=== PATIENT | male | born 1955 | race Caucasian/White ===

== ENCOUNTER → 2017-04-06 09:07 | Outpatient (CLI) | payer OTHER, SELFPAY ==
[2017-04-06 10:53] LABS: Anion Gap 8 (5-15); BUN 13 mg/dL (7-18); Calcium,Total 8.5 mg/dL (8.5-10.1); Chloride 106 mmol/L (98-107); Cholesterol 164 mg/dL (200); EST Glomerular Filtration Rate 81 mL/min (>60); Est Glom Filt Rate - Afr Amer 98 mL/min (>60); Glucose 98 mg/dL (74-106); High Density Lipoprotein 37 mg/dL; Potassium 4.1 mmol/L (3.5-5.1); Sodium Level 142 mmol/L (136-145); Triglycerides 188 mg/dL; Very Low Density Lipoprotein 38 mg/dL (5-40)
== END ==
PROVIDERS: Family Provider Family Medicine; PCP Family Medicine; Visit Provider Internal Medicine Cardiovascular Disease
DX: I71.00 Dissection of unspecified site of aorta (principal); I10 Essential (primary) hypertension
CPT/HCPCS: 36415; 80048; 80061

== ENCOUNTER → 2018-07-19 08:18 | Outpatient (CLI) | payer OTHER, SELFPAY ==
--- NOTE | 2018-07-19 08:23 | RAD_ITS ---
STUDY: X-RAY - LUMBAR SPINE REASON FOR EXAM: Male, 62 years old. Chronic low back pain and hip pain. TECHNIQUE: 5 view(s) of the lumbar spine were obtained including oblique views. COMPARISON: None FINDINGS: Normal lumbar lordosis. There is no substantial scoliosis. There is a normal alignment of the vertebrae. There is multilevel endplate spondylosis of the lumbar vertebrae. Normal disc space heights. Facet joint osteoarthritis. The soft tissue structures are unremarkable. RAD/L/S Spine Min 4 Views IMPRESSION: Degenerative changes of the spine, as detailed above. Electronically Signed: Sixto Ward, at 13:47 EDT , Service support ,
--- NOTE | 2018-07-19 08:26 | RAD_ITS ---
STUDY: X-RAY - PELVIS AND BILATERAL HIPS REASON FOR EXAM: Male, 62 years old. Bilateral hip pain. TECHNIQUE: AP view of the pelvis.? 2 views of the right hip, and 2 views of the left hip were obtained. COMPARISON: None. FINDINGS: There is a non-specific bowel gas pattern. Normal visualized soft tissue structures. Normal bilateral iliac wings, sacroiliac joints and visualized sacrum. Normal bilateral superior and inferior pubic rami. Normal pubic symphysis. Normal bilateral ischial tuberosities. Normal visualized right femoral head. There is osteoarthritic spur formation of the right acetabular rim. There is mild articular joint space narrowing of the right hip. Focal ossification overlying the right greater trochanter suggestive of a bursitis. Normal visualized left femoral head. There is osteoarthritic spur formation of the left acetabular rim. There is mild articular joint space narrowing of the left hip. RAD/Hips B/L min 2 views w/ Pelvis IMPRESSION: Degenerative changes involving both hip joints.. Findings suggestive of bursitis overlying the right greater trochanter. Electronically Signed: Sixto Ward, at 13:44 EDT , Service support ,
== END ==
PROVIDERS: Family Provider Family Medicine; PCP Family Medicine; Referring Provider Internal Medicine; Visit Provider Internal Medicine
DX: M25.552 Pain in left hip (principal); M25.551 Pain in right hip; M54.5 Low back pain
CPT/HCPCS: 72110; 73521

== ENCOUNTER → 2018-07-29 | Outpatient (CLI) | payer OTHER, SELFPAY ==
--- NOTE | 2018-07-29 16:49 | CT_ITS ---
STUDY: CT CHEST WITH CONTRAST REASON FOR EXAM: Male, 62 years old. Status post TAA repair, history of hypertension RADIATION DOSAGE (If Supplied By Facility): CTDIvol = ( 17.46 ) mGy, DLP = ( 828.40 ) mGycm TECHNIQUE: Transaxial 2.5 mm imaging was performed following intravenous administration of 100 IV Isovue 300. Multiplanar coronal and sagittal images were reformatted. Individualized dose optimization techniques were used for this CT. COMPARISON: CT chest 02/23/2015. 03/12/2014. FINDINGS: Stable mild interstitial disease with mild hyperinflation, peripheral opacification along the dependent parenchyma, stable calcified granuloma in the right upper lobe and right middle lobe. There is no demonstrated pleural abnormality. Sternal cerclage wires are present from a prior sternotomy. There is no pericardial fluid or cardiomegaly. There are calcifications of the coronary arteries. Normal mediastinum. Left stable calcified hilar lymph nodes. Normal enhanced pulmonary arteries. Mild stable wall thickening of the ascending thoracic aorta with occasional calcification, aortic diameter just distal to the left coronary artery origin measures 3.7 x 3.9 cm, descending thoracic aorta 2.7 x 3 cm. There is no aneurysm, dissection or leak. There are multi-level degenerative changes of the thoracic spine. Bilateral stable perirenal stranding, cholelithiasis, normal adrenal glands and normal diameter and enhancement of the upper abdominal aorta. CT/Chest WITH Contrast IMPRESSION: Postsurgical changes as above. No thoracic aortic aneurysm, dissection or leak. Chronic mild interstitial lung disease, remote granulomatous exposure, arteriosclerosis, coronary artery disease, degenerative changes, cholelithiasis are stable findings. Electronically Signed: Garima Mckenzie MD at 6:35 EDT , Service support ,
== END | disposition home or self-care (01) ==
LOC: CT 16:48
PROVIDERS: Family Provider Internal Medicine; PCP Internal Medicine; Referring Provider Internal Medicine; Visit Provider Internal Medicine
DX: I71.2 Thoracic aortic aneurysm, without rupture (principal)
CPT/HCPCS: 71260; Q9967; A4216

== ENCOUNTER → 2018-08-26 13:01 | Outpatient (CLI) | payer OTHER, SELFPAY ==
--- NOTE | 2018-08-26 13:12 | CT_ITS ---
STUDY: CTA CHEST REASON FOR EXAM: Male, 62 years old. Chest pain. Recent long distance travel. RADIATION DOSAGE (If Supplied By Facility): CTDIvol = ( 16.12 ) mGy, DLP = ( 498.76 ) mGycm TECHNIQUE: The examination was performed with the intravenous administration of 100mL IV Isovue 370. Post-processing of the angiographic images was performed, with multiplanar reformation and 3D reconstruction. Individualized dose optimization techniques were used for this CT. COMPARISON: Comparison is made with prior examination dated July 29, 2018 and February 23, 2015. FINDINGS: Normal enhancement of the main pulmonary artery and right and left pulmonary arteries. Normal enhancement of the bilateral peripheral pulmonary arteries. There is no demonstrated pulmonary embolism. Normal thoracic aorta and visualized great vessels. There is no demonstrated aortic dissection. There are endovascular stent(s) present. There are calcifications of the coronary arteries. Status post midline sternotomy. Stable appearance of the ascending thoracic aorta. Normal mediastinum. Normal hilar regions. Normal visualized trachea and bronchi. The lungs are well expanded. Normal pulmonary parenchyma. Normal pleura. Normal chest wall structures. There are degenerative changes of thoracic spine. Gallstone. CT/CTA Chest W/WO Contrast IMPRESSION: No evidence of pulmonary embolism. Stable examination. Electronically Signed: Sixto Ward, at 15:00 EDT , Service support ,
[2018-08-26 13:30] LABS: Creatinine, Serum 0.98 mg/dL (0.70-1.30); EST Glomerular Filtration Rate 82 mL/min (>60); Est Glom Filt Rate - Afr Amer 99 mL/min (>60)
== END ==
PROVIDERS: Family Provider Internal Medicine; PCP Internal Medicine; Referring Provider Internal Medicine; Visit Provider Internal Medicine
DX: R07.9 Chest pain, unspecified (principal)
CPT/HCPCS: 36415; 71275; 82565; Q9967

== ENCOUNTER → 2018-12-02 17:14 | Outpatient (CLI) | payer OTHER, SELFPAY ==
--- NOTE | 2018-12-02 17:16 | CT_ITS ---
We are attempting to reach an attending provider to discuss findings. An addendum with communication details will be sent when the communication is complete. STUDY: CT ABDOMEN AND PELVIS WITH CONTRAST REASON FOR EXAM: Male, 63 years old. Pain RADIATION DOSAGE (If Supplied By Facility): DLP = ( 1243.71 ) mGycm TECHNIQUE: Transaxial images were obtained from the dome of the diaphragm to the symphysis pubis without oral contrast. 100 ml ml of Gastrografin and amp; 100mL Isovue-300 contrast was administered. Sagittal and coronal images were reconstructed. Individualized dose optimization techniques were used for this CT. COMPARISON: None. FINDINGS: The visualized lung bases are clear. The visualized portions of the heart and pericardium are within normal limits. The gallbladder contains a gallstone. The liver is within normal limits. There are no suspicious hepatic lesions. The spleen is normal in size. The pancreas is within normal limits. The adrenal glands are within normal limits. There are no obstructing renal stones. There is no hydronephrosis. There are no focal renal lesions. Normal visualized stomach. There is mild bowel wall thickening at the distal descending colon with adjacent inflammatory changes. No regional diverticula are present. The aorta is normal in caliber. There is no abdominal or pelvic free air, free fluid, fluid collection or lymphadenopathy. There are no destructive osseous lesions. CT/Abdomen/Pelvis WITH Contrast IMPRESSION: Bowel wall thickening with adjacent inflammatory changes at the distal descending colon. Findings likely secondary to focal colitis, although underlying lesion is not excluded. Colonoscopy is recommended following acute episode to exclude underlying lesion. No regional diverticula. Electronically Signed: Yo Linares, at 19:51 EDT Tel , Service support ,
[2018-12-02 19:26] LABS: CREATININE FINGERSTICK 1.1 mg/dL (0.70-1.30)
== END ==
PROVIDERS: Family Provider Internal Medicine; PCP Internal Medicine; Referring Provider Internal Medicine; Visit Provider Internal Medicine
DX: R10.32 Left lower quadrant pain (principal)
CPT/HCPCS: 74177; Q9967

== ENCOUNTER → 2019-02-10 12:39 | Outpatient (CLI) | payer OTHER, SELFPAY ==
--- NOTE | 2019-02-10 12:41 | ECHOD_ITS ---
Reason For Study: AORTIC INSUFFICIENCY Procedure This was a 2D Doppler, Color Flow transthoracic echocardiogram. Exam performed in department. Left Ventricle Normal LV size. Left ventricular systolic function is normal. The estimated ejection fraction is 60 %. Stage 1 diastolic dysfunction. No regional wall motion abnormalities noted. Right Ventricle Normal RV size. Normal systolic function. Atria The left atrium is moderately enlarged. Normal right atrium. Aortic Valve The aortic valve is not well visualized. Pulmonic Valve Normal pulmonic valve. Great Vessels Normal aortic root. The pulmonary artery is normal size. Normal inferior vena cava. Pericardium/Pleural No pericardial effusion. MMode/2D Measurements & Calculations LVIDd: 5.0 cm IVSd: 0.93 cm Ao root diam: 3.0 cm LVIDs: 3.2 cm LVPWd: 0.90 cm RVDd: 4.0 cm FS: 34.8 % LAV(MOD-bp): 91.1 ml LA dimension(2D): 4.3 cm LA A4 area: 27.3 cm2 LAV(MOD-bp) Indexed: 39.1 ml/m2 LAV(MOD-sp2): 84.5 ml LAV(MOD-sp4): 92.8 ml RA A4 area: 21.8 cm2 Time Measurements MV dec time: 0.24 sec Doppler Measurements & Calculations MV E max krzysztof: 89.4 cm/sec Lat Peak E' Krzysztof: 9.5 cm/sec Med Peak E' Krzysztof: 8.8 cm/sec MV A max krzysztof: 109.3 cm/sec E/E' lat: 9.4 E/E' med: 10.1 MV E/A: 0.82 Ao V2 max: 158.0 cm/sec LV V1 max: 106.6 cm/sec PA V2 max: 112.3 cm/sec Ao max P.0 mmHg LV V1 max P.5 mmHg Interpretation Summary Normal LV size. Left ventricular systolic function is normal. The estimated ejection fraction is 60 %. Stage 1 diastolic dysfunction. Ordering Physician: Hansa Finney Referring Physician: Hansa Finney Performed By: Ирина Ball, ALRY, RVT
== END ==
PROVIDERS: Family Provider Internal Medicine; PCP Internal Medicine; Referring Provider Internal Medicine; Visit Provider Internal Medicine
DX: I35.1 Nonrheumatic aortic (valve) insufficiency (principal)
CPT/HCPCS: 93306

== ENCOUNTER 2019-07-08 18:14 | Emergency (ER) | payer OTHER, SELFPAY ==
[2019-07-08 18:15] VITALS: BP 135/83; PULSE 65; RESP 18; TEMP 36.8; O2SAT 97; BMI 37.0
--- NOTE | 2019-07-08 18:36 | CT_ITS ---
STUDY: CT ABDOMEN AND PELVIS WITH CONTRAST REASON FOR EXAM: Male, 63 years old. FALL FROM LADDER, 7-8 FT. NO LOC, BACK PAIN, RT ELBOW FX RADIATION DOSAGE (If Supplied By Facility): CTDIvol = ( 17.07 ) mGy, DLP = ( 1315.82 ) mGycm TECHNIQUE: Transaxial images were obtained from the dome of the diaphragm to the symphysis pubis without oral contrast. IV 100mL Isovue-300 was administered. Sagittal and coronal images were reconstructed. Individualized dose optimization techniques were used for this CT. COMPARISON: CT of abdomen and pelvis dated December 02, 2018 FINDINGS: No visualized acute fractures of the hips or pelvis. No visualized acute fractures of the spine. No visualized acute injury of the solid organs. There are chronic interstitial fibrotic changes of the lung bases. Median sternotomy wires are present. Normal liver. A small single stone is present. Normal spleen. Normal pancreas. Normal bilateral adrenal glands. There is mild atrophy and cortical lobularity of both kidneys. Normal visualized stomach. Normal small intestine. There are several colonic diverticula consistent with diverticulosis. There is non-visualization of the appendix. There is diffuse atherosclerotic calcification of the abdominal aorta, without a demonstrated aneurysm. Normal inferior vena cava. Normal retroperitoneum. Normal urinary bladder. Grossly unremarkable prostate. Normal abdominal wall. There are diffuse degenerative changes of the visualized lumbar spine. CT/Abdomen/Pelvis W IV Cont ONLY IMPRESSION: 1. Colonic diverticulosis 2. Gallstone 3. No visualized acute injury of the solid organs. 4. No visualized acute fractures of the hips or pelvis. No visualized acute fractures of the spine. Electronically Signed: Kota Abraham MD at 19:55 EDT , Service support ,
--- NOTE | 2019-07-08 18:37 | ED.VISSUMM ---
- ER Visit Summary Date of Service: 07/08/19 Chief Complaint: [Fall History of Present Illness: The patient is a 63 M [presents the emergency department after sustaining a fall off of a ladder today. Patient states that he was trimming some trees when he fell off a ladder he thinks approximately 8feet and fell directly backwards onto some pallets. He denies loss of consciousness. He did hit his head but denies headache or evidence of trauma to his head. Patient denies any neck pain. He denies any paresthesias in his arms or legs. Patient complains mostly of pain to his back as well as his right elbow. He denies any chest pain or difficulty breathing. He denies any abdominal pain. Patient states at one point he tried to walk afterwards and felt like his legs were to give out. Patient states the injury occurred approximately 4 PM today. Patient has history of high cholesterol and hypertension. Patient does not believe that he is on any blood thinners although we did have a record of him having Plavix but he does not feel like he is taking it currently.] Patient has history of hypertension and high cholesterol. Physical Examination: [HEENT-PERRLA, EOMI. Cranial nerves II through XII grossly intact. TMs clear. Mucous membranes moist. No adenopathy. No external evidence of trauma to his head. No C-spine tenderness on palpation. Normal active range of motion is painless. Cardiovascular-regular rate and rhythm without murmur or ectopy Lungs-clear to auscultation, chest wall stable without crepitus or subcu emphysema. Patient has some superficial abrasions and mild erythema to the right posterior upper back. No bony tenderness over the ribs noted. Abdomen-normoactive bowel sounds, soft, nontender, no rebound or rigidity, no peritoneal signs. Back exam-mild diffuse tenderness over lumbar spine. He is got tenderness over the left flank. Pelvis is stable. Extremities-intact ?4, normal range of motion, normal pulses. Right elbow-patient has diffuse soft tissue swelling with tenderness diffusely. He has pain with range of motion. He is neurovascular intact distally.] Test Results: [X-rays of the right elbow showed a fracture of the proximal ulna that is nondisplaced. Patient had a CT scan of the abdomen pelvis with IV contrast that showed no evidence of any traumatic injuries.] Emergency Department Course and Treatment: [Patient was placed in a long-arm posterior splint. Patient was medicated with [place]. Case was discussed with orthopedic surgeon on-call Dr. Leonard who will see patient in the office tomorrow. I initially recommended the patient that we obtain CT scans of his head and neck as well and a chest x-ray which he refused due to insurance issues and lack of insurance. Patient understands I cannot rule out a closed head injury such as intracranial hemorrhage or skull fracture. Patient also understands I cannot rule out chest pathology without a chest x-ray and neck fractures without x-rays or CT of the neck. Patient states that he has no discomfort in any of these areas and does not want to have any studies done.] Treatment Plan: [Patient was given a sling and will follow up with orthopedics tomorrow morning] Disposition: [Discharged home in stable condition] Impression: [Mechanical fall Right elbow fracture Back contusion] This note was generated with [employer] dictation software. It may contain incorrect words, spelling, and punctuation that were not noted in review of the chart prior to signing ED Disposition - Plan for ED Patient: Referrals: Reg,Hansa, [Primary Care Provider] -
--- NOTE | 2019-07-08 18:49 | RAD_ITS ---
STUDY: X-RAY - RIGHT ELBOW REASON FOR EXAM: Male, 63 years old. fall from ladder, pain TECHNIQUE: 3 view(s) of the elbow. COMPARISON: None. FINDINGS: Acute comminuted nondisplaced fracture of the olecranon process and proximal one third shaft is present with the predominant fracture line being vertical through the mid aspect of the bone. No visualized acute fractures of the distal humerus or proximal radius. Small cortical osteophytes are present at the periphery of the humeral epicondyles. Elevation of the anterior fat pad is indicative of a joint effusion. Normal radiocapitellar and ulnotrochlear articulations. Mild soft tissue swelling is present. RAD/Elbow min 3 Views IMPRESSION: Acute comminuted fracture of the proximal ulna. Electronically Signed: Kota Abraham MD at 19:30 EDT , Service support ,
--- NOTE | 2019-07-08 20:24 | ED.DEP ---
ED Disposition - Plan for ED Patient: Instructions: ED Mechanical Fall, ED FRACTURE Elbow, ED Contusion Back Prescriptions: Hydrocodone Bitart/Apap 5-325 [[place] 5MG-325MG] 1 tab PO Q4H PRN PRN 2 Days #20 tab PRN Reason: Pain Prescription Printed Referrals: Hansa Finney DO [Primary Care Provider] - Arturo Leonard DO [STAFF PHYSICIAN] - 1 Day Additional Instructions: Call Dr. Leonard's office at 8am to be seen tomorrow before 11am
[2019-07-08 20:25] VITALS: BP 125/78; PULSE 68; RESP 16; O2SAT 96
[2019-07-08] MEDS: HYDROcodone Bitartrate/Apap 5/325 Tablet PO (20:28)
== END 2019-07-08 21:23 | disposition home or self-care (01) ==
LOC: ED 19:48
PROVIDERS: Emergency Provider Emergency Medicine; PCP Internal Medicine
DX: S42.401A Unspecified fracture of lower end of right humerus, initial encounter for closed fracture (principal); S30.0XXA Contusion of lower back and pelvis, initial encounter; I10 Essential (primary) hypertension; E78.00 Pure hypercholesterolemia, unspecified; W11.XXXA Fall on and from ladder, initial encounter; Z79.82 Long term (current) use of aspirin
CPT/HCPCS: 29105; 73080; 74177; 99284; Q9967; A4216

== ENCOUNTER → 2019-07-18 09:14 | Outpatient (CLI) | payer SELFPAY ==
[2019-07-09 09:39] VITALS: BMI 37.0
--- NOTE | 2019-07-18 09:14 | RAD_ITS ---
STUDY: X-RAY - RIGHT ELBOW REASON FOR EXAM: Male, 63 years old. FRACTURE TECHNIQUE: 3 view(s) of the elbow. COMPARISON: 07/08/2019 FINDINGS: Normal visualized humerus, radius. There is a healing comminuted fracture of the proximal ulna in good alignment. Normal radiocapitellar and ulnotrochlear articulations. The soft tissue structures are unremarkable. RAD/Elbow min 3 Views IMPRESSION: There is a healing comminuted fracture of the proximal ulna in good alignment. Electronically Signed: Dilma Bonilla, at 10:58 EDT Tel , Service support ,
== END ==
PROVIDERS: PCP Internal Medicine; Referring Provider Orthopaedic Surgery; Visit Provider Orthopaedic Surgery
DX: S52.001A Unspecified fracture of upper end of right ulna, initial encounter for closed fracture (principal)
CPT/HCPCS: 73080

== ENCOUNTER → 2019-07-28 08:21 | Outpatient (CLI) | payer SELFPAY ==
[2019-07-18 09:19] VITALS: BMI 37.0
--- NOTE | 2019-07-28 08:22 | RAD_ITS ---
STUDY: X-RAY - RIGHT ELBOW REASON FOR EXAM: Male, 63 years old. FX, CAST REMOVAL TECHNIQUE: 3 view(s) of the elbow. COMPARISON: Comparison is made with prior examination dated Jul 18 2019. FINDINGS: There is evidence of healing of the proximal ulnar fracture. There is good alignment. Normal radiocapitellar and ulnotrochlear articulations. Persistent joint effusion and soft tissue swelling. RAD/Elbow min 3 Views IMPRESSION: Healing nondisplaced fracture of the proximal ulna with residual joint effusion and soft tissue swelling. Electronically Signed: Sixto Ward, at 13:11 EDT , Service support ,
== END ==
PROVIDERS: PCP Internal Medicine; Referring Provider Orthopaedic Surgery; Visit Provider Orthopaedic Surgery
DX: S52.091D Other fracture of upper end of right ulna, subsequent encounter for closed fracture with routine healing (principal)
CPT/HCPCS: 73080

== ENCOUNTER → 2019-08-18 08:05 | Outpatient (CLI) | payer SELFPAY ==
[2019-07-28 08:33] VITALS: BMI 37.0
--- NOTE | 2019-08-18 08:06 | RAD_ITS ---
STUDY: X-RAY - RIGHT ELBOW REASON FOR EXAM: Male, 63 years old. FRACTURE TECHNIQUE: 3 view(s) of the elbow. COMPARISON: 07/28/2019 FINDINGS: Progressive, but still not complete healing of the previously described proximal ulnar fracture. Persistent fracture lucency is still noted, seen best on the oblique and lateral views. No acute fracture or suspicious osseous lesion. No joint effusion, there is persistent soft tissue swelling and induration of the subcutaneous tissue, particularly along the proximal ulna, cellulitis cannot be excluded. RAD/Elbow min 3 Views IMPRESSION: Progressive but still not complete healing of a previously described proximal ulnar fracture. Alignment is anatomic, fracture lucency still seen in the proximal ulna on the oblique and lateral views Nonspecific soft tissue swelling and induration of the subcutaneous tissues suggests possible cellulitis No acute fracture Joint spaces well-preserved Electronically Signed: Sanjeev Rdz MD at 8:25 EDT , Service support ,
== END ==
PROVIDERS: PCP Internal Medicine; Referring Provider Orthopaedic Surgery; Visit Provider Orthopaedic Surgery
DX: S52.091D Other fracture of upper end of right ulna, subsequent encounter for closed fracture with routine healing (principal)
CPT/HCPCS: 73080

== ENCOUNTER 2019-08-18 17:00 | Outpatient (RCR) | payer SELFPAY ==
[2019-07-28 08:33] VITALS: BMI 37.0
--- NOTE | 2019-08-04 18:26 | HP.OTEVAL_ITS ---
Patient's Visit Information LORIE MERCADO is a 63 year old M, referred to Occupational Therapy by Dr. Arturo Leonard DO, with a diagnosis of Comminuted olecranon fracture proximal ulna. Date of Evaluation: 08/04/19 Occupational Therapist: Mariluz French, JUAN/Tamiko, CHT - Subjective This 63 year old male was seen for OT eval with dx of proximal ulnar fx finger stiffness. fall 07/08/19 suffered proximal ulnar fx. pt currently 3 weeks and 6 days from fall. has ordered PROM/AAROM of right elbow with edema contol of digits. Pt reports limitations with all ADLs and IADls at this time- pt in hinge elbow brace. pt would like to get his arm back to return to his PLOF - Pain right arm 2 Pain Intensity Range: 0, 4, 5 - ROM Elbow: right -30/90 left +5/150 Forearm: right/left WFL Wrist: right/ left WFL Opposition: 9 ROM Comments: pt demo inability to form a composite fist - pt 3.5 cm away from composite - Strength Engineering Secretary: right NT left 105# Lateral Pinch: right NT left 16# Tripod Pinch: right NT left 14# - Edema Elbow: right 34cm left 31cm Wrist: right 20.5cm left 20cm Other: MCP right 25mc [id number] - Quick DASH-Disab of Arm,Shoulder& Hand Quick DASH Score: 72.7250 - Goals Goal:: strength goal will be set at later date Goal:: pt will demo a increase in right elbow ROM to -5/140 to increase pts ind. with ADLs and IADLS by d/c Goal:: pt will report no pain greater than 1/10 with use of right UE for ADLs and IADls by d/c Goal:: pt will demo a reduction in edema by 20% or greater to allow pt to perfrom AROM ex, and ADLs without limits by d/c - Rehabilitation General Assessment: Pt demo 3 weeks and 6 days from fall off ladder and a fx of right proximal ulna. pt demo with limited ROM and hellen of right UE. This limits pts functional use of right UE with ADLs and IALDs at this time. Pt would benefit from skilled OT services 1-2x week for 6 weeks. Today therapist instructed pt in PROM/AAROM of right elbow/forearm, edema control and tendon glides for digits. Pt demo understanding, was given handout and agree to POC. Rehabilitation Potential: Good - Anticipated Interventions A/AAROM/PROM, Edema Control, Triggerpoint Release, Modalities, Joint Protection/Energy Conservation, Ergonomic Education, Fine Motor Coord/[place] - Visit Plan Frequency: 1-2x /Week Duration: 6 Weeks General Plan: therapist instructed pt in PROM and AAROM of elbow flex/ext, forearm supination/pronation, wrist flex/ext and digit tendon glides- pt instructed to perform all ex slowly and is not to cause pain or discomfot with PROM or AAROM. pt demo understanding. theapist will work with pt on edema control and PROM/AAROM as needed and progress pt to strengthening when has cleared pt. this was explained to pt. pt demo understanding and agree to POC. TEXT: Thank you for the opportunity to evaluate your patient. For Medicare and Medicare HMO plans, please review the plan of care and approve it. It will need to be FAXED BACK to us at [phone] for Medicare purposes. Please let me know if there are questions or concerns regarding this plan of care. Physician Signature: Date:
--- NOTE | 2019-10-29 15:36 | HP.OTDCSUM ---
It has been my pleasure to treat LORIE MERCADO under orders from Dr. Arturo Leonard DO, for the diagnosis of Comminuted olecranon fracture proximal ulna for a total of 3 visit(s). Please see the following information for a summary of their discharge status. Objective/Function: R net front end developer: 20#, L 114#. R lat pinch 12#. R Tripod pinch 18#. R Elbow 48/166 Patient Goals: Regain Mobility, Regain Strength, Use Hand/Wrist/Arm Normally Again Goal:: strength goal will be set at later date Goal:: pt will demo a increase in right elbow ROM to -5/140 to increase pts ind. with ADLs and IADLS by d/c Goal:: pt will report no pain greater than 1/10 with use of right UE for ADLs and IADls by d/c Goal:: pt will demo a reduction in edema by 20% or greater to allow pt to perfrom AROM ex, and ADLs without limits by d/c Plan: Pt is self pay and would like a HEP and be discharged If there are questions or concerns regarding this patient's occupational therapy, please fell free to call me at [phone]. Thank you for the referral of this patient. Sincerely, Mariluz French, OTR/L, CHT
== END 2019-08-18 19:00 ==
LOC: OT 17:00
PROVIDERS: PCP Internal Medicine; Referring Provider Orthopaedic Surgery; Visit Provider Orthopaedic Surgery
DX: S52.001D Unspecified fracture of upper end of right ulna, subsequent encounter for closed fracture with routine healing (principal); M25.649 Stiffness of unspecified hand, not elsewhere classified
CPT/HCPCS: 97110; 97140; 97166

== ENCOUNTER → 2019-08-28 09:42 | Outpatient (CLI) | payer SELFPAY ==
[2019-08-18 08:31] VITALS: BMI 37.0
[2019-08-28 10:28] LABS: Absolute Lymphocyte Count 0.82 X10^3/uL (0.83-4.51); Absolute Neutrophil Count 2.5 X10^3/uL (2.0-7.7); Basophil# 0.04 X10^3/uL; Basophil% 0.8 % (0-1); Eosinophils% 14.4 % (0-5); Hemoglobin 15.4 g/dL (13.0-16.5); Lymphocyte # 0.82 X10^3/ul (4.0); Lymphocyte % 16.9 % (19-41); Mean Corp Hgb Conc 34.2 g/dL (32-36); Mean Corpuscular Hgb 31.4 pg (27.0-32.0); Mean Corpuscular Volume 91.6 fL (80-94); Mean Platelet Vol. 9.8 fl (6.2-12.0); Monocyte# 0.76 X10^3/uL; Monocyte% 15.6 % (0-10); NRBC Flagged by Analyzer 0 % (0-5); Neutrophil # 2.51 X10^3/uL (2.7-7.7); Neutrophil % 51.7 % (47-70); Platelet Count 206 K/mm3 (150-450); RBC Distribution Width CV 12.9 % (11.6-14.6); RBC Distribution Width SD 42.7 fl (35.1-43.9); Red Blood Count 4.91 M/mm3 (4.6-6.2); White Blood Count 4.9 K/mm3 (4.4-11.0)
[2019-08-28 11:11] LABS: Hemoglobin A1c 5.3 % (3.8-5.6)
[2019-08-28 11:21] LABS: AST(SGOT) 26 U/L (15-37); Alanine Aminotransfer ALT/SGPT 41 U/L (16-61); Albumin, Serum 3.6 g/dL (3.2-5.0); Alkaline Phosphatase 96 U/L (45-117); Anion Gap 8 (5-15); BUN 15 mg/dL (7-18); BUN/Creat Ratio 16.7 RATIO (10-20); Calcium,Total 8.4 mg/dL (8.5-10.1); Chloride 105 mmol/L (98-107); Cholesterol 170 mg/dL (200); EST Glomerular Filtration Rate 91 mL/min (>60); Est Glom Filt Rate - Afr Amer 110 mL/min (>60); Globulin 3.7 g/dL (2.2-4.2); Glucose 103 mg/dL (74-106); High Density Lipoprotein 36 mg/dL; Microalbumin,Random Urine 8.6 mg/L (NO RANGE EST.); Microalbumin:Creatinine Ratio 5.7 mg/g CRE (<30 mg/g CRE); PSA,Total - Annual Screen 4.26 ng/mL (0.00-4.00); Potassium 3.8 mmol/L (3.5-5.1); Protein, Total 7.3 g/dL (6.4-8.2); Sodium Level 138 mmol/L (136-145); Triglycerides 171 mg/dL; Very Low Density Lipoprotein 34 mg/dL (5-40)
[2019-08-28 13:06] LABS: Vitamin D,25 Hydroxy 58.9 ng/mL
== END ==
PROVIDERS: PCP Internal Medicine; Referring Provider Internal Medicine; Visit Provider Internal Medicine
DX: R73.01 Impaired fasting glucose (principal); E78.2 Mixed hyperlipidemia; E55.9 Vitamin D deficiency, unspecified; Z12.5 Encounter for screening for malignant neoplasm of prostate
CPT/HCPCS: 36415; 80053; 80061; 82043; 82306; 82570; 83036; 84153; 85025; G0103

== ENCOUNTER → 2020-09-29 09:03 | Outpatient (CLI) | payer SELFPAY ==
[2019-08-18 08:31] VITALS: BMI 37.0
== END ==
PROVIDERS: PCP Internal Medicine; Referring Provider Nurse Practitioner Adult Health; Visit Provider Nurse Practitioner Adult Health
DX: R97.20 Elevated prostate specific antigen [PSA] (principal)
CPT/HCPCS: 36415; 84153

== ENCOUNTER → 2020-10-21 12:13 | Outpatient (CLI) | payer SELFPAY ==
--- NOTE | 2020-10-21 | IMM_PTH ---
PATIENT: LORIE MERCADO LOC: [facility] U#:[id number] AGE/SX: 69/M ROOM: RE10/21/[address]: Dr. Charli Quiroz MD : 1955 BED: DIS: SPEC #: [id number] RECD: 10/22/20 11:18 STATUS: MARIA LUISA RERadha #: [id number] ROMIE: 10/21/20 00:[address]: Charli Quiroz DEPT: IMMUNOHISTOCHEMISTRY RECD BY: Nancy Calvert ENTERED: 10/22/20 11:19 SP TYPE: IMMUNO OTHR DR: Dr. Hansa Finney DO Tissues: A - PROSTATE RIGHT B - PROSTATE RIGHT Procedures: 34BE12 (add) P40 (add) 34BE12 (initial) PHYSICIAN & INSTITUTION [place] [id number] SPECIMEN INFORMATION: Tissue Source: A - Right prostate, apex, core biopsy, B - Right prostate, mid, core biopsy Clinical Info: R97.20 Specimen Number: [id number] A & B CPT code: 76287, 74454 x3 METHODOLOGY: Deparaffinized sections of prefer/formalin-fixed tissue or PAP/DQ stained slides are incubated with monoclonal/polyclonal antibodies/oligonucleotide probes. Localization is made via biotin free immunoperoxidase method. Appropriate controls are performed and reacted as expected. Results on target cell population are indicated in the following table: RESULTS: ANTIBODY / CLONE RESULT Block A P40 (BC28) positive 34BE12 (34BE12) positive Block B P40 (BC28) positive, focal 34BE12 (34BE12) positive, focal These tests were developed and their performance characteristics determined by [facility]. They may not have been cleared or approved by the U.S. Food and Drug Administration. The FDA has determined that such clearance or approval is not necessary. The above immunohistochemical/dualISH markers are ordered and reviewed by the Pathologist. INTERPRETATION: A. Right prostate, apex, core biopsy: Negative for malignancy. B. Right prostate, mid, core biopsy: Focal atypical small acinar proliferation (JEANNIE). This case has been reviewed in consultation with Dr. Nazario who concurs with the above diagnosis. SJ:richardson 10/25/2020
--- NOTE | 2020-10-21 08:00 | PROSBIL_PTH ---
PATIENT: LORIE MERCADO LOC: [facility] U#:[id number] AGE/SX: 69/M ROOM: RE10/21/[address]: Dr. Charli Quiroz MD : 1955 BED: DIS: SPEC #: [id number] RECD: 10/21/20 08:00 STATUS: MARIA LUISA NAREN #: [id number] ROMIE: 10/21/20 08:[address]: Charli Quiroz DEPT: SURGICAL PATHOLOGY RECD BY: Georgina Murray ENTERED: 10/21/20 13:02 SP TYPE: PROST BX ROSARIO DR: Dr. Hansa Finney DO Tissues: A - PROSTATE RIGHT B - PROSTATE RIGHT C - PROSTATE RIGHT D - PROSTATE LEFT E - PROSTATE LEFT F - PROSTATE LEFT Procedures: PROSTATE BX HEADER OPERATION: Prostate biopsy PRE-OP DIAGNOSIS: R97.20 TISSUE SUBMITTED: A - Right apex, B - Right mid, C - Right base, D - Left apex, E - Left mid, F - Left base MICROSCOPIC DIAGNOSIS A. Right prostate, apex, core biopsy: Focal high-grade prostatic intraepithelial neoplasia (HGPIN). See comment. B. Right prostate, mid, core biopsy: Focal atypical small acinar proliferation (JEANNIE) Focal high-grade prostatic intraepithelial neoplasia (HGPIN). See comment. C. Right prostate, base, core biopsy: Prostatic tissue, negative for malignancy. D. Left prostate, apex, core biopsy: Prostatic tissue, negative for malignancy. E. Left prostate, mid, core biopsy: Prostatic tissue, negative for malignancy. F. Left prostate, base, core biopsy: Prostatic tissue, negative for malignancy. SJ:rg 10/22/2020 COMMENT A & B. Immunohistochemistry ([id number]) supports the above diagnosis. Case has been reviewed in consultation with Dr. Nazario who concurs with the above diagnosis. IDC:AM MICROSCOPIC DESCRIPTION Slides are reviewed. GROSS DESCRIPTION A - Received is one container designated prostate, right apex. The specimen consists of one elongated fragment of light connor-white soft tissue measuring 1.5 cm in length and 0.1 cm in diameter. The specimen is totally submitted in one cassette. B - Received is one container designated prostate, right mid. The specimen consists of two elongated fragments of light connor-white soft tissue each measuring 1.2 cm in length and 0.1 cm in diameter. The specimen is totally submitted in one cassette. C - Received is one container designated prostate, right base. The specimen consists of two elongated fragments of light connor-white soft tissue each measuring 1 cm in length and 0.1 cm in diameter. The specimen is totally submitted in one cassette. D - Received is one container designated prostate, left apex. The specimen consists of one elongated fragment of light connor-white soft tissue measuring 1 cm in length and 0.1 cm in diameter. The specimen is totally submitted in one cassette. E - Received is one container designated prostate, left mid. The specimen consists of two elongated fragments of light connor-white soft tissue measuring 0.8 and 1.2 cm in length and 0.1 cm in diameter. The specimen is totally submitted in one cassette. F - Received is one container designated prostate, left base. The specimen consists of two elongated fragments of light connor-white soft tissue measuring 1 and 1.2 cm in length and 0.1 cm in diameter. The specimen is totally submitted in one cassette. / SJ:rg 10/21/20 TC:5 CPT: 08746 x6
== END ==
PROVIDERS: PCP Internal Medicine; Visit Provider Urology
DX: R97.20 Elevated prostate specific antigen [PSA] (principal)
CPT/HCPCS: 88305; 88341; 88342; G0416

== ENCOUNTER 2021-05-12 09:19 | Outpatient (CLI) | payer SELFPAY ==
[2021-05-12 10:52] LABS: PSA,Total- Diagnostic 4.14 ng/mL (0.0-4.0)
== END 2021-05-12 23:59 | disposition home or self-care (01) ==
PROVIDERS: PCP Internal Medicine; Visit Provider Urology
DX: N40.1 Benign prostatic hyperplasia with lower urinary tract symptoms (principal)
CPT/HCPCS: 36415; 84153

== ENCOUNTER → 2021-10-26 | Outpatient (CLI) | payer OTHER, SELFPAY ==
[2021-10-26 13:21] LABS: AST(SGOT) 16 U/L (15-37); Alanine Aminotransfer ALT/SGPT 25 U/L (16-61); Albumin, Serum 3.3 g/dL (3.2-5.0); Alkaline Phosphatase 79 U/L (45-117); Anion Gap 5 (5-15); BUN 13 mg/dL (7-18); BUN/Creat Ratio 13.3 RATIO (10-20); Calcium,Total 8.4 mg/dL (8.5-10.1); Chloride 107 mmol/L (98-107); Creatinine, Serum 0.98 mg/dL (0.70-1.30); EST Glomerular Filtration Rate 82 mL/min (>60); Est Glom Filt Rate - Afr Amer 99 mL/min (>60); Globulin 3.4 g/dL (2.2-4.2); Glucose 94 mg/dL (74-106); Potassium 3.8 mmol/L (3.5-5.1); Protein, Total 6.7 g/dL (6.4-8.2); Sodium Level 141 mmol/L (136-145)
[2021-10-26 13:28] LABS: Erythrocyte Sedimentation Rate 10 mm/hr (0-20)
[2021-10-26 13:35] LABS: Absolute Lymphocyte Count 1.09 X10^3/uL (0.83-4.51); Absolute Neutrophil Count 5.4 X10^3/uL (2.0-7.7); Basophil# 0.04 X10^3/uL; Basophil% 0.5 % (0-1); Eosinophil# 0.26 X10^3/uL; Eosinophils% 3.3 % (0-5); Hematocrit 45.5 % (40-54); Hemoglobin 15.5 g/dL (13.0-16.5); Lymphocyte # 1.09 X10^3/ul (0.83-4.51); Lymphocyte % 13.7 % (19-41); Mean Corp Hgb Conc 34.1 g/dL (32-36); Mean Corpuscular Hgb 30.9 pg (27.0-32.0); Mean Corpuscular Volume 90.6 fL (80-94); Mean Platelet Vol. 10.1 fl (6.2-12.0); Monocyte# 1.14 X10^3/uL; Monocyte% 14.4 % (0-10); NRBC Flagged by Analyzer 0 % (0-5); Neutrophil # 5.36 X10^3/uL (2.7-7.7); Neutrophil % 67.6 % (47-70); Platelet Count 237 K/mm3 (150-450); RBC Distribution Width CV 12.7 % (11.6-14.6); RBC Distribution Width SD 41.8 fl (35.1-43.9); Red Blood Count 5.02 M/mm3 (4.6-6.2); White Blood Count 7.9 K/mm3 (4.4-11.0)
== END | disposition home or self-care (01) ==
LOC: LABSPEC 13:05
PROVIDERS: PCP Internal Medicine; Visit Provider Internal Medicine
DX: R19.7 Diarrhea, unspecified (principal)
CPT/HCPCS: 80053; 85025; 85652; 86140

== ENCOUNTER → 2022-03-14 | Outpatient (CLI) | payer MEDICARE, SELFPAY ==
--- NOTE | 2022-03-14 12:22 | PFTCOMP ---
COMPLETE PULMONARY FUNCTION TEST INTERPRETATION Brief HPI: Patient is a 66-year-old male, currently under the care of Dr. Finney, who presents to [facility] for complete pulmonary function tests secondary to diagnosis of abnormal PFT. Respiratory therapist reports good effort and reproducible results. Interpretation: Forced expiration spirometry shows no large airways obstructive ventilatory defect with an FEV1 of 89% predicted. There is some improvement following bronchodilators, but this does not reach significance by strict ATS criteria. Spirograms are of good quality and plateau slowly, indicating slowly emptying areas of the lungs. The respiratory flow volume loop shows decreased expiratory flow rates at high lung volumes consistent with small airways obstruction. Lung volumes by body plethysmography show a normal total lung capacity at 6.82 L, 100% predicted. All other lung volumes are within normal limits. Diffusion capacity by carbon monoxide is normal at 113% predicted. The airway resistance is normal. Compared to previous pulmonary function tests from 04/26/2015, there is been a significant reduction in flows, but improvement in DLCO. Impression: Grossly normal pulmonary function test with some stigmata of possible disease. Consider bronchoprovocation if asthma would fit clinical picture.
== END | disposition home or self-care (01) ==
LOC: PSN 08:01
PROVIDERS: PCP Internal Medicine; Visit Provider Internal Medicine
DX: R94.2 Abnormal results of pulmonary function studies (principal)
CPT/HCPCS: 94060; 94726; 94729

== ENCOUNTER → 2023-06-28 | Outpatient (CLI) | payer MEDICARE, SELFPAY ==
--- NOTE | 2023-06-28 13:48 | CT_ITS ---
STUDY: CT CHEST WITH CONTRAST REASON FOR EXAM: Male, 67 years old. Thoracic ascending aortic aneurysm RADIATION DOSAGE (If Supplied By Facility): CTDIvol = ( 18.71 ) mGy, DLP = ( 739.62 ) mGycm TECHNIQUE: Transaxial imaging was performed following intravenous administration of IV 100mL Isovue-300. Multiplanar coronal and sagittal images were reformatted. Individualized dose optimization techniques were used for this CT. COMPARISON: Comparison is made with prior study dated July 29, 2018. FINDINGS: CHEST Mild scarring in the posterior aspect of the right upper lobe. There is no demonstrated pleural abnormality. Sternal cerclage wires and vascular clips are present from a prior sternotomy and coronary artery bypass graft procedure (CABG). There are calcifications of the coronary arteries. Normal mediastinum. Normal hilar regions. Normal unenhanced pulmonary arteries. There is atherosclerotic calcification of the aortic arch with tortuosity and elongation of the aortic arch and descending thoracic aorta. The root of the ascending aorta measures 3.3 cm. This measures within normal limits. There are multi-level degenerative changes of the thoracic spine. Gallstones. CT/Chest WITH Contrast IMPRESSION: The root of the ascending thoracic aorta measures 3.3 cm in transverse dimension. Mild scarring in the posterior aspect of the right upper lobe. Electronically Signed: Sixto Ward MD at 10:58 EDT ,
[2023-06-28 14:13] LABS: CREATININE FINGERSTICK < 1.0 mg/dL (0.70-1.30); EGFR FINGERSTICK > 60.0000 mL/min (>60)
== END | disposition home or self-care (01) ==
PROVIDERS: PCP Internal Medicine; Referring Provider Internal Medicine; Visit Provider Internal Medicine
DX: I71.21 Aneurysm of the ascending aorta, without rupture (principal)
CPT/HCPCS: 71260; Q9967

== ENCOUNTER → 2023-08-08 | Outpatient (CLI) | payer MEDICARE, SELFPAY ==
[2023-08-08 15:55] LABS: Troponin-I HS 8 pg/mL (3.0-78.0)
== END | disposition home or self-care (01) ==
LOC: LABSPEC 15:15
PROVIDERS: PCP Internal Medicine; Referring Provider Internal Medicine; Visit Provider Internal Medicine
DX: R61 Generalized hyperhidrosis (principal)
CPT/HCPCS: 84484

== ENCOUNTER → 2023-09-03 | Outpatient (CLI) | payer MEDICARE, SELFPAY ==
--- NOTE | 2023-09-03 06:59 | ECHOCS_ITS ---
Reason For Study: CAD/ASHD Procedure This was a 2D Doppler, Color Flow transthoracic echocardiogram. The study was technically difficult. Contrast injection was performed. Exam performed in department. Left Ventricle Normal LV size. Mild concentric left ventricular hypertrophy. The left ventricular ejection fraction is 65 %. Stage 1 diastolic dysfunction. No regional wall motion abnormalities noted. Right Ventricle Normal RV size. Normal systolic function. Atria The left atrium is moderately enlarged. Normal right atrium. Mitral Valve Normal mitral valve. Tricuspid Valve Normal tricuspid valve. Mild (1+) tricuspid valve insufficiency. Pulmonary artery systolic pressure is 24 mmHg. Aortic Valve Trisinus/trileaflet aortic valve. Pulmonic Valve Normal pulmonic valve. Great Vessels Normal aortic root. The pulmonary artery is normal size. Inferior vena cava collapse with respiration. Pericardium/Pleural No pericardial effusion. Medication Diluted definity 1.5ml given slow IV push to enhance endocardial definition. MMode/2D Measurements & Calculations LVIDd: 3.5 cm IVSd: 1.2 cm LVOT diam: 2.0 cm LVIDs: 2.6 cm LVPWd: 1.3 cm RVDd: 5.0 cm FS: 25.4 % LVOT area: 3.1 cm2 Ao root diam: 3.4 cm LAV(MOD-bp): 85.2 ml LVAd ap4: 43.3 cm2 LAV(MOD-bp) Indexed: 35.5 ml/m2 LVLd ap4: 9.6 cm LAV(MOD-sp2): 70.8 ml EDV(MOD-sp4): 161.8 ml LAV(MOD-sp4): 88.8 ml EDV(sp4-el): 165.7 ml LVAs ap4: 20.2 cm2 LVLs ap4: 7.5 cm ESV(MOD-sp4): 45.5 ml ESV(sp4-el): 46.0 ml EF(MOD-sp4): 71.9 % EF(sp4-el): 72.2 % SV(MOD-sp4): 116.3 ml SV(sp4-el): 119.7 ml LA A4 area: 27.2 cm2 LA dimension(2D): 4.2 cm RA A4 area: 18.1 cm2 TAPSE: 1.7 cm Time Measurements MV dec time: 0.35 sec Doppler Measurements & Calculations MV E max krzysztof: 66.6 cm/sec Lat Peak E' Krzysztof: 5.5 cm/sec Med Peak E' Krzysztof: 5.7 cm/sec MV A max krzysztof: 106.2 cm/sec E/E' lat: 12.1 E/E' med: 11.6 MV E/A: 0.63 MV V2 max: 112.5 cm/sec MV dec slope: 193.0 cm/sec2 Ao V2 max: 143.8 cm/sec MV max P.1 mmHg Ao max P.3 mmHg MV V2 mean: 65.5 cm/sec Ao V2 mean: 96.1 cm/sec MV mean P.0 mmHg Ao mean P.4 mmHg MV V2 VTI: 31.2 cm Ao V2 VTI: 29.2 cm MVA(VTI): 2.5 cm2 AV (velocity ratio): 0.88 SINGH(I,D): 2.7 cm2 SINGH(V,D): 2.6 cm2 LV V1 max: 124.3 cm/sec SV(LVOT): 78.5 ml PA V2 max: 100.7 cm/sec LV V1 max P.2 mmHg PA V2 mean: 77.1 cm/sec LV V1 mean P.9 mmHg LV V1 mean: 94.2 cm/sec LV V1 VTI: 25.6 cm PI end-d krzysztof: 126.8 cm/sec TR max krzysztof: 227.5 cm/sec TR max P.7 mmHg ECHO/Echo Complete W/ Contrast Interpretation Summary Normal LV size. Mild concentric left ventricular hypertrophy. The left ventricular ejection fraction is 65 %. Stage 1 diastolic dysfunction. The left atrium is moderately enlarged. Contrast injection was performed. Ordering Physician: Hansa Finney Referring Physician: Hansa Finney Performed By: Sana Cuadra RCS
--- NOTE | 2023-09-03 08:20 | EKG12_ITS ---
Test Reason : NEW ONSET AFIB Blood Pressure : / mmHG Vent. Rate : 067 BPM Atrial Rate : 288 BPM P-R Int : 000 ms QRS Dur : 120 ms QT Int : 424 ms P-R-T Axes : 059 078 077 degrees QTc Int : 448 ms Atrial flutter with variable A-V block Right bundle branch block Abnormal ECG Confirmed by JYOTI KRAMER, ELLIOTT ([id number]), greeting card editor PRAMOD WRIGHT ([id number]) on 09/04/2023 7:16:10 AM Referred By: Hansa Finney Confirmed By:ELLIOTT MONTES MD
--- NOTE | 2023-09-03 08:25 | EKG12_ITS ---
Test Reason : NEW ONSET AFIB Blood Pressure : / mmHG Vent. Rate : 078 BPM Atrial Rate : 078 BPM P-R Int : 206 ms QRS Dur : 120 ms QT Int : 404 ms P-R-T Axes : 008 075 072 degrees QTc Int : 460 ms Normal sinus rhythm Right bundle branch block Abnormal ECG Confirmed by JYOTI KRAMER, ELLIOTT ([id number]), editor managing director PRAMOD WRIGHT ([id number]) on 09/04/2023 7:16:35 AM Referred By: Hansa Finney Confirmed By:ELLIOTT MONTES MD
--- NOTE | 2023-09-03 16:29 | STRESSREP ---
Stress Test Report Exercise myocardial perfusion stress test. 67-year-old man with a history of coronary artery disease Stress protocol: Resting EKG demonstrates normal sinus rhythm with a rate of 76 bpm resting blood pressure is 132/92 mmHg. The patient exercised according to the regular Kiran protocol for a total duration of 5 minutes attaining a maximum heart rate of 160 bpm which was 103% of maximum predicted heart rate; the maximum workload was 7 metabolic equivalents. At rest there were no ST or T wave changes noted to suggest ischemia and at peak exercise upsloping ST changes only were noted which did not meet the criteria for ischemia. The patient however did develop rapid tachycardia which initially appeared with premature atrial complexes and then appeared to develop into an atrial flutter with a 2-1 block and then with recovery developed atrial flutter with a variable block with occasional premature ventricular complexes noted. Patient did have some shortness of breath but otherwise asymptomatic. No clinical angina was noted the test was terminated due to the target heart rate being achieved/fatigue. The peak blood pressure was 202/94 mmHg. Rate-pressure product was 16,500. Myocardial perfusion protocol. 15 mCi of technetium 99m sestamibi was injected at rest. The patient exercised according to regular Kiran protocol for total duration of 5 minutes and at peak exercise 44 point mCi of technetium 99m sestamibi was injected stress images were obtained stress and rest images were reconstructed in comparing the short axis vertical long and horizontal long axis. Gated images were also obtained. Perfusion SPECT analysis: Review of the stress images demonstrate normal uptake of tracer noted in all areas of the myocardium. A small defect in the apex cannot be completely excluded. The resting images similarly demonstrate normal uptake of tracer noted in all areas of the myocardium. A small apical defect cannot be completely excluded. No areas of reversibility are noted to suggest ischemia. Gated SPECT analysis: The gated ejection fraction is 60%. Conclusion: Normal exercise myocardial perfusion stress test at a moderate workload Preserved ejection fraction. Small apical defect cannot be excluded Patient did develop atrial flutter with a controlled ventricular response rate.
== END | disposition home or self-care (01) ==
PROVIDERS: PCP Internal Medicine; Referring Provider Internal Medicine; Visit Provider Internal Medicine
DX: I25.10 Atherosclerotic heart disease of native coronary artery without angina pectoris (principal)
CPT/HCPCS: 78452; 93005; 93017; 93306; A9500; Q9957; A4216; C8929

== ENCOUNTER 2023-09-29 10:47 | Observation (INO) | payer MEDICARE, SELFPAY ==
[2023-09-29] VITALS (7 sets, daily range): BP systolic 134–150; BP diastolic 80–96; PULSE 62–89; RESP 15–20; TEMP 36.2–36.8; O2SAT 92–99; BMI 39.6; BMI 38.7
--- NOTE | 2023-09-29 11:03 | CT_ITS ---
STUDY: CT BRAIN WITHOUT CONTRAST REASON FOR EXAM: Male, 67 years old. Right facial droop RADIATION DOSAGE (If Supplied By Facility): CTDIvol = ( 44.99 ) mGy, DLP = ( 866.41 ) mGycm TECHNIQUE: Transaxial CT imaging of the brain was performed without administration of intravenous contrast material. Individualized dose optimization techniques were used for this CT. COMPARISON: MR brain from 2013 FINDINGS: Normal soft tissue structures. Normal calvarium. There is mild cerebral atrophy with widening of the extra-axial spaces and ventricular dilatation. There are areas of decreased attenuation within the white matter tracts of the supratentorial brain, consistent with microvascular disease changes. Normal basal ganglia and thalami. Normal brainstem. Normal cerebellum. There is no intracranial hemorrhage. There are no findings of an acute ischemic infarction. Normal visualized paranasal sinuses. CT/Brain/Head without Contrast IMPRESSION: Chronic involutional changes of the brain. No acute hemorrhage Electronically Signed: Sanjeev Rdz MD at 11:34 EDT ,
--- NOTE | 2023-09-29 11:03 | EKG12_ITS ---
Test Reason : NEURO S/SX Blood Pressure : / mmHG Vent. Rate : 070 BPM Atrial Rate : 070 BPM P-R Int : 166 ms QRS Dur : 114 ms QT Int : 426 ms P-R-T Axes : 016 066 062 degrees QTc Int : 460 ms Normal sinus rhythm Incomplete right bundle branch block Borderline ECG Confirmed by Radames Askew ([id number]), editor map CARLOS GARCIA ([id number]) on 10/01/2023 2:15:22 PM Referred By: Confirmed By:Radames Askew
--- NOTE | 2023-09-29 11:04 | ED.VIS.STROK ---
HPI History of Present Illness Chief Complaint: Neuro S/Sx Detail of Chief Complaint: Right-sided facial droop Informant: patient and spouse/S.O. Narrative Narrative: Patient presents with right-sided facial droop that initially was noticed 4 days ago. Friend mentioned it to him 4 days ago. Somebody else mentioned it again today and he comes in for evaluation. Does have some numbness to the right side of his face that he just may be noticed an hour ago. Denies any difficulty with vision or speech otherwise. Denies general or focal weakness otherwise. Denies recent illness. Denies any falls or head injuries. [facility] Medical History (Updated 09/29/23 @ 12:[address] Missy Granados, DO) Vertigo Vitamin D deficiency Mixed hyperlipidemia EDUARDO (obstructive sleep apnea) Essential (primary) hypertension CAD (coronary artery disease) Aortic insufficiency Thoracic ascending aortic aneurysm Interstitial pulmonary fibrosis Gastritis Cervical radiculopathy Lumbar radiculopathy BPH (benign prostatic hyperplasia) Balance disorder Headache Abnormal lung function test Abnormal stress test Home Medications ?Medication ?Instructions ?Recorded ?Last Taken ?Type aspirin 81 mg chewable tablet 162 mg PO DAILY@0800 02/23/15 Unknown History benazepril 20 mg tablet 20 mg PO DAILY 07/08/19 Unknown History amlodipine 5 mg tablet 5 mg PO QDAY 09/24/23 Unknown History ascorbic acid (vitamin C) 1,000 mg 1 g PO DAILY 09/24/23 Unknown History capsule cholecalciferol (vitamin D3) 125 125 mcg PO DAILY 09/24/23 Unknown History mcg (5,000 unit) capsule cinnamon bark 500 mg capsule 500 mg PO DAILY 09/24/23 Unknown History metoprolol tartrate 25 mg tablet 25 mg PO BID 09/24/23 Unknown History rosuvastatin 10 mg tablet 10 mg PO QHS 09/24/23 Unknown History sildenafil 100 mg tablet 100 mg PO Q3D PRN 09/24/23 Unknown History Allergy/AdvReac Type Severity Reaction Status Date / Time No Known Allergies Allergy Verified 09/29/23 10:50 Family History (Updated 09/24/23 @ 11:27 by Pamela Painting RN) Grandfather Myocardial infarction Mother Hypertension Father Prostate cancer Surgical History (Updated 09/24/23 @ 11:25 by Pamela Painting RN) History of bilateral knee replacement H/O aortic root repair (~02/2014) Social History (Updated 09/24/23 @ 11:26 by Pamela Painting RN) Smoking Status: Never smoker alcohol intake: current alcohol intake frequency: holidays/special occasions only substance use type: does not use ROS ROS ED Review of Systems ROS Unobtainable: other Constitutional Constitutional ED: Reports lethargy; Denies chills, fever(s), sweats or weight loss Eyes Eyes: Denies blurry vision, change in vision or diplopia ENT ENT ED: Reports other Details: Right-sided facial droop ; Denies rhinorrhea or sore throat Cardiovascular Cardiovascular: Denies chest pain, orthopnea or racing heartbeat Respiratory/Chest Respiratory/Chest: Denies cough, dyspnea, dyspnea on exertion, orthopnea or sputum Gastrointestinal Gastrointestinal: Denies abdominal pain, diarrhea, nausea or vomiting Genitourinary Genitourinary ED: Denies dysuria, hematuria or urinary frequency Musculoskeletal Musculoskeletal: Denies arthralgias, back pain, myalgias or neck pain Integumentary Denies abscess, Abrasions or rash Neurologic Neurologic: Reports other Details: Right facial droop ; Denies headache(s) or weakness Psychiatric Psychiatric: Denies anxiety, depression or suicidal thoughts Endocrine Endocrinology: Denies polydipsia, polyphagia or polyuria Hematologic/Lymphatic Hematologic/Lymphatic: Denies easy bleeding, easy bruising or lymphadenopathy Allergic/Immunologic Allergic/Immunologic ED: Denies mouth swelling, tongue swelling or urticaria EXAM Physical Exam Const Vital Signs: 09/29/23 10:48 Temperature 97.2 F L Temperature Source Temporal Pulse Rate 76 Respiratory Rate 15 Blood Pressure 134/80 H Blood Pressure Mean 98 Pulse Ox 95 Oxygen Delivery Method Room Air Positive well nourished and well developed General Appearance ED: well developed and NAD HEENT Reports TM's clear and moist mucous membranes normocephalic and atraumatic; Negative for trauma or tenderness Tympanic Membrane ED: Yes TM's clear Eyes PERRL and EOMs intact bilaterally General Eye ED: Negative for pale conjunctiva or scleral icterus Neck no lymphadenopathy, supple and no JVD General: Negative for tenderness Chest Wall inspection of chest normal and palpation of chest normal Chest: Negative for tenderness Resp normal respiratory effort and clear to auscultation bilaterally Effort and Inspection: Negative for respiratory distress or pain with movement Auscultation: Negative for rhonchi, wheezes or diminished lung sounds Cardio regular rate, regular rhythm, S1 normal heart sound, S2 normal heart sound and no murmurs Peripheral Pulses: pulses 2+ throughout GI normal to inspection, nondistended, normoactive bowel sounds, soft to palpation, non-tender, non-distended and no masses Back/Spine no CVA tenderness and no thoracic nor lumbar tenderness Extremity normal to inspection General Extremety ED: Negative for edema General Extremity: Negative for edema Neuro oriented x3, CN's II-XII intact bilaterally, no sensory deficits noted and gait normal Neuro Narrative: Right facial droop. Patient able to wrinkle both sides of the forehead. Some weakness of the right upper eyelid. Finger-nose and heel alvarez testing within normal limits, negative Romberg, negative for drift. NIH stroke scale is a 2 for the right-sided facial droop Sensorium / Orientation: awake, alert, oriented to person, oriented to place and oriented to time Motor Exam: strength 5/5 throughout and strength abnormal Psych mental status grossly normal Skin no rashes or lesions noted and no wounds MDM MDM MDM Narrative Medical decision making narrative: Patient presents with right-sided facial droop x 4 days. On exam he is able to wrinkle both sides of the forehead. In the differential would be stroke versus Fan's palsy. Given his age and findings on exam concern for stroke. CT scan of the brain without contrast was obtained and was unremarkable. EKG obtained arrival shows sinus rhythm with ventricular rate of 70 bpm with incomplete right bundle branch block. Chemistries unremarkable. CBC with differential unremarkable. Will discuss case with hospitalist to evaluate patient for admission. Feel he will require completion of workup for stroke. Lab Data Attestation: I reviewed the patient's lab results. Labs: Laboratory Results - last 24 hr 09/29/23 11:13 WBC 9.0 RBC 4.93 Hgb 15.1 Hct 45.0 MCV 91.3 MCH 30.6 MCHC 33.6 RDW Std Deviation 44.9 H RDW Coeff of Cleve 13.3 Plt Count 217 MPV 9.9 Immature Gran % (Auto) 1.100 H Neut % (Auto) 76.7 H Lymph % (Auto) 7.6 L Elbert % (Auto) 9.5 Eos % (Auto) 4.3 Baso % (Auto) 0.8 Absolute Neuts (auto) 6.9 Absolute Lymphs (auto) 0.68 L Nucleated RBC % 0 Sodium 138 Potassium 4.0 Chloride 109 H Carbon Dioxide 27.0 Anion Gap 2 L BUN 13 Creatinine 0.97 Estim Creat Clear Calc 99.56 Est GFR (MDRD) Af Amer 99 Est GFR (MDRD) Non-Af 82 BUN/Creatinine Ratio 13.4 Glucose 119 H Calcium 8.7 Radiography Diagnostic Testing: Clinical Impression(s) from Imaging Studies Brain CT 09/29/23 11:03 IMPRESSION: Chronic involutional changes of the brain. No acute hemorrhage Electronically Signed: Sanjeev Rdz MD at 11:34 EDT , EKG Initial EKG: Attestation: I personally reviewed and interpreted this EKG as follows: Comments: Sinus rhythm with ventricular rate of 70 bpm with incomplete right bundle branch block Discharge Plan Dx/Rx/DC Orders Clinical Impression: Facial droop, Facial paresthesia Disposition Disposition: Acute Care Hospital [facility]
[2023-09-29] MEDS: 0.9% Normal Saline (1000mL) 1,000 ML 150 ML IV (11:12)
[2023-09-29 11:24] LABS: Absolute Lymphocyte Count 0.68 X10^3/uL (0.83-4.51); Absolute Neutrophil Count 6.9 X10^3/uL (2.0-7.7); Basophil# 0.07 X10^3/uL; Basophil% 0.8 % (0-1); Eosinophil# 0.39 X10^3/uL; Eosinophils% 4.3 % (0-5); Hemoglobin 15.1 g/dL (13.0-16.5); Lymphocyte # 0.68 X10^3/ul (0.83-4.51); Lymphocyte % 7.6 % (19-41); Mean Corp Hgb Conc 33.6 g/dL (32-36); Mean Corpuscular Hgb 30.6 pg (27.0-32.0); Mean Corpuscular Volume 91.3 fL (80-94); Mean Platelet Vol. 9.9 fl (6.2-12.0); Monocyte# 0.85 X10^3/uL; Monocyte% 9.5 % (0-10); NRBC Flagged by Analyzer 0 % (0-5); Neutrophil # 6.89 X10^3/uL (2.7-7.7); Neutrophil % 76.7 % (47-70); Platelet Count 217 K/mm3 (150-450); RBC Distribution Width CV 13.3 % (11.6-14.6); RBC Distribution Width SD 44.9 fl (35.1-43.9); Red Blood Count 4.93 M/mm3 (4.6-6.2)
[2023-09-29 11:31] LABS: Anion Gap 2 (5-15); BUN 13 mg/dL (7-18); BUN/Creat Ratio 13.4 RATIO (10-20); Calcium,Total 8.7 mg/dL (8.5-10.1); Chloride 109 mmol/L (98-107); Creatinine, Serum 0.97 mg/dL (0.70-1.30); EST Glomerular Filtration Rate 82 mL/min (>60); Est Glom Filt Rate - Afr Amer 99 mL/min (>60); Estimated Creatinine Clearance 99.56 ml/min; Glucose 119 mg/dL (74-106); Sodium Level 138 mmol/L (136-145)
--- NOTE | 2023-09-29 12:03 | HP.PCM.HOS_ITS ---
HPI - General General Date of Admission: 09/29/23 Date of Service: 09/29/23 Chief Complaint: right facial droop HPI Narrative LORIE MERCADO, is a 67 M with a PMH as outlined who presents via the ED on 09/29/2023 with a complaint of new onset right facial droop that was noticed 4 days ago. He said his friend told him he had a right facial droop 4 days ago; someone else also mentioned it today so he decided to come in to the ED. He admitted to some numbness on the right side of his face. He denied any slurred speech, visual changes, weakness in any extremity or any other stroke like symptoms. Review of systems was otherwise negative. Vitals in the ED were BP of 134/80, VT of 76, RR of 15 and temp of 97.2F. He was saturating at 95% on room air. CBC ws unremarkable. BMp was also unremarkable and CT of the brain showed no acute intracranial pathology. He is being admitted to be managed for right facial droop to rule out a stroke. [facility] Medical History (Updated 09/29/23 @ 12:[address] Missy Granados, ) Vertigo Vitamin D deficiency Mixed hyperlipidemia EDUARDO (obstructive sleep apnea) Essential (primary) hypertension CAD (coronary artery disease) Aortic insufficiency Thoracic ascending aortic aneurysm Interstitial pulmonary fibrosis Gastritis Cervical radiculopathy Lumbar radiculopathy BPH (benign prostatic hyperplasia) Balance disorder Headache Abnormal lung function test Abnormal stress test Home Medications ?Medication ?Instructions ?Recorded ?Last Taken ?Type aspirin 81 mg chewable tablet 162 mg PO DAILY@0800 02/23/15 Unknown History benazepril 20 mg tablet 20 mg PO DAILY 07/08/19 Unknown History amlodipine 5 mg tablet 5 mg PO QDAY 09/24/23 Unknown History ascorbic acid (vitamin C) 1,000 mg 1 g PO DAILY 09/24/23 Unknown History capsule cholecalciferol (vitamin D3) 125 125 mcg PO DAILY 09/24/23 Unknown History mcg (5,000 unit) capsule cinnamon bark 500 mg capsule 500 mg PO DAILY 09/24/23 Unknown History metoprolol tartrate 25 mg tablet 25 mg PO BID 09/24/23 Unknown History rosuvastatin 10 mg tablet 10 mg PO QHS 09/24/23 Unknown History sildenafil 100 mg tablet 100 mg PO Q3D PRN 09/24/23 Unknown History Allergy/AdvReac Type Severity Reaction Status Date / Time No Known Allergies Allergy Verified 09/29/23 10:50 Family History (Updated 09/24/23 @ 11:27 by Pamela Painting RN) Grandfather Myocardial infarction Mother Hypertension Father Prostate cancer Surgical History (Updated 09/24/23 @ 11:25 by Pamela Painting RN) History of bilateral knee replacement H/O aortic root repair (~02/2014) Social History (Updated 09/24/23 @ 11:26 by Pamela Painting RN) Smoking Status: Never smoker alcohol intake: current alcohol intake frequency: holidays/special occasions only substance use type: does not use Vital Signs Vital Signs Vital Signs: 09/29/23 10:48 Temperature 97.2 F L Temperature Source Temporal Pulse Rate 76 Respiratory Rate 15 Blood Pressure 134/80 H Blood Pressure Mean 98 Pulse Ox 95 Oxygen Delivery Method Room Air Weight Weight: 276 lb 7.355 oz Body Mass Index (BMI) 39.6 Results Lab / Micro Data 09/29/23 11:13 09/29/23 11:13 Labs: Laboratory Results - last 24 hr 09/29/23 11:13: WBC 9.0, RBC 4.93, Hgb 15.1, Hct 45.0, MCV 91.3, MCH 30.6, MCHC 33.6, RDW Std Deviation 44.9 H, RDW Coeff of Cleve 13.3, Plt Count 217, MPV 9.9, I mmature Gran % (Auto) 1.100 H, Neut % (Auto) 76.7 H, Lymph % (Auto) 7.6 L, [place] % (Auto) 9.5, Eos % (Auto) 4.3, Baso % (Auto) 0.8, Absolute Neuts (auto) 6.9, A bsolute Lymphs (auto) 0.68 L, Nucleated RBC % 0, Sodium 138, Potassium 4.0, C hloride 109 H, Carbon Dioxide 27.0, Anion Gap 2 L, BUN 13, Creatinine 0.97, Estim Creat Clear Calc 99.56, Est GFR (MDRD) Af Amer 99, Est GFR (MDRD) Non-Af 82, BUN/Creatinine Ratio 13.4, Glucose 119 H, Calcium 8.7 Imaging Radiology Impression Brain CT 09/29/23 11:03 IMPRESSION: Chronic involutional changes of the brain. No acute hemorrhage Electronically Signed: Sanjeev Rdz MD at 11:34 EDT , Assessment & Plan Assessment/Plan (1) Facial droop: (2) Facial paresthesia: PLAN: Plan #Right facial droop, to rule out a stroke * admit to PCU * right facial droop noted 4 days ago, so patient not a TNK candidate * NIHSS is 1. * hold BP meds * CT of the brain showed no acute intracranial pathology * get MRI of the brain and 2D echo * PT/OT consult * hold BP meds to allow for permissive hypertension in the event of a stroke * PO aspirin 81mg daily and continue statin * fall precautions * #Hypertension; BP meds on hold to allow for permissive hypertension #Hyperlipidemia: on statin DVT prophylaxis: lovenox Code status: Charges/Coding Visit Charges Inpatient E&M: 92118 Init Hosp L2 Procedures Hospitalists Procedures: 40619 Advncd Care Plan 30 Min
--- NOTE | 2023-09-29 12:03 | PCM.HP.STD ---
HPI - General General Date of Admission: 09/29/23 Date of Service: 09/29/23 Chief Complaint: right facial droop HPI Narrative LORIE MERCADO, is a 67 M with a PMH as outlined who presents via the ED on 09/29/2023 with a complaint of new onset right facial droop that was noticed 4 days ago. He said his friend told him he had a right facial droop 4 days ago; someone else also mentioned it today so he decided to come in to the ED. He admitted to some numbness on the right side of his face. He denied any slurred speech, visual changes, weakness in any extremity or any other stroke like symptoms. Review of systems was otherwise negative. Vitals in the ED were BP of 134/80, CO of 76, RR of 15 and temp of 97.2F. He was saturating at 95% on room air. CBC ws unremarkable. BMp was also unremarkable and CT of the brain showed no acute intracranial pathology. He is being admitted to be managed for right facial droop to rule out a stroke. [facility] Medical History (Updated 09/29/23 @ 14:46 by Kesha Howard) Vertigo Vitamin D deficiency Mixed hyperlipidemia EDUARDO (obstructive sleep apnea) Essential (primary) hypertension CAD (coronary artery disease) Aortic insufficiency Thoracic ascending aortic aneurysm Interstitial pulmonary fibrosis Gastritis Cervical radiculopathy Lumbar radiculopathy BPH (benign prostatic hyperplasia) Balance disorder Headache Abnormal lung function test Abnormal stress test Home Medications ?Medication ?Instructions ?Recorded ?Last Taken ?Type aspirin 81 mg chewable tablet 162 mg PO DAILY@0800 02/23/15 09/29/23 History benazepril 20 mg tablet 20 mg PO DAILY 07/08/19 09/29/23 History amlodipine 5 mg tablet 5 mg PO QDAY 09/24/23 09/29/23 History ascorbic acid (vitamin C) 1,000 mg 1 g PO DAILY 09/24/23 09/29/23 History capsule cholecalciferol (vitamin D3) 125 125 mcg PO DAILY 09/24/23 Unknown History mcg (5,000 unit) capsule cinnamon bark 500 mg capsule 500 mg PO DAILY 09/24/23 09/29/23 History metoprolol tartrate 25 mg tablet 25 mg PO BID 09/24/23 09/29/23 History Allergy/AdvReac Type Severity Reaction Status Date / Time No Known Allergies Allergy Verified 09/29/23 10:50 Family History Grandfather Myocardial infarction Mother Hypertension Father Prostate cancer Surgical History History of bilateral knee replacement H/O aortic root repair (~02/2014) Social History Smoking Status: Never smoker alcohol intake: current alcohol intake frequency: holidays/special occasions only substance use type: does not use ROS Constitutional Constitutional: Denies anorexia, chills, fatigue, fever(s), malaise or weakness Eyes Eyes: Denies blurry vision or change in vision ENT HEENT: Denies dysphagia, headache(s) or hearing loss Cardiovascular Cardiovascular: Denies chest pain, dyspnea on exertion, edema, lightheadedness, orthopnea, palpitations, paroxysmal nocturnal dyspnea or rapid heart rate Respiratory/Chest Respiratory/Chest: Denies cough, dyspnea, shortness of breath at rest or shortness of breath with exertion Gastrointestinal Gastrointestinal: Denies abdominal pain, constipation, diarrhea, nausea or vomiting Genitourinary Genitourinary: Denies dysuria Musculoskeletal Musculoskeletal: Denies arthralgias or back pain Neurologic Neurologic: Reports paresthesias and tingling; Denies confusion, dizziness, focal weakness, headache(s), numbness, seizure-like activity, seizures or syncope Psychiatric Psychiatric: Denies anxiety Vital Signs Vital Signs Vital Signs: 09/29/23 10:48 Temperature 97.2 F L Temperature Source Temporal Pulse Rate 76 Respiratory Rate 15 Blood Pressure 134/80 H Blood Pressure Mean 98 Pulse Ox 95 Oxygen Delivery Method Room Air Weight Weight: 276 lb 7.355 oz Body Mass Index (BMI) 39.6 Physical Exam Const alert, oriented x3 and no apparent distress Constitutional Narrative: obese General Appearance: cooperative HEENT normocephalic, head/scalp atraumatic, moist oral mucous membranes and oropharynx normal Mouth: oral and palatal mucosa normal Eyes PERRL, EOMs intact bilaterally and conjunctivae normal Neck no lymphadenopathy and supple Resp normal respiratory effort, no retractions, no use of accessory muscles and clear to auscultation bilaterally Cardio regular rate, regular rhythm, S1 normal heart sound, S2 normal heart sound and no murmurs GI normal to inspection, nondistended, normoactive bowel sounds, soft to palpation, non-tender, non-distended and hepatosplenomegaly Extremity normal to inspection, full ROM and no clubbing, cyanosis or edema Neuro oriented x3, moves all extremities and no focal motor deficits Neuro Narrative: has a left facial droop. NIH stroke scale was 2 Sensorium / Orientation: awake and alert Motor Exam: strength 5/5 throughout Psych affect normal Results Lab / Micro Data 09/29/23 11:13 09/29/23 11:13 Labs: Laboratory Results - last 24 hr 09/29/23 11:13: WBC 9.0, RBC 4.93, Hgb 15.1, Hct 45.0, MCV 91.3, MCH 30.6, MCHC 33.6, RDW Std Deviation 44.9 H, RDW Coeff of Cleve 13.3, Plt Count 217, MPV 9.9, Immature Gran % (Auto) 1.100 H, Neut % (Auto) 76.7 H, Lymph % (Auto) 7.6 L, [place] % (Auto) 9.5, Eos % (Auto) 4.3, Baso % (Auto) 0.8, Absolute Neuts (auto) 6.9, Absolute Lymphs (auto) 0.68 L, Nucleated RBC % 0, Sodium 138, Potassium 4.0, Chloride 109 H, Carbon Dioxide 27.0, Anion Gap 2 L, BUN 13, Creatinine 0.97, Estim Creat Clear Calc 99.56, Est GFR (MDRD) Af Amer 99, Est GFR (MDRD) Non-Af 82, BUN/Creatinine Ratio 13.4, Glucose 119 H, Calcium 8.7 Imaging Radiology Impression Brain CT 09/29/23 11:03 IMPRESSION: Chronic involutional changes of the brain. No acute hemorrhage Electronically Signed: Sanjeev Rdz MD at 11:34 EDT Reading Location ID and State: [facility] / [place] , Service support , Assessment & Plan Assessment/Plan (1) Facial droop: (2) Facial paresthesia: PLAN: Plan #Right facial droop, to rule out a stroke admit to PCU right facial droop noted 4 days ago, so patient not a TNK candidate NIHSS is 2. hold BP meds CT of the brain showed no acute intracranial pathology get MRI of the brain and 2D echo PT/OT consult hold BP meds to allow for permissive hypertension in the event of a stroke PO aspirin 81mg daily and continue statin fall precautions #Hypertension; BP meds on hold to allow for permissive hypertension #Hyperlipidemia: on statin DVT prophylaxis: lovenox Code status: Full code Patient counseled extensively about different types of CODE STATUS including full code, DNR CCA and DNR CCA. Patient elects to be full code. Total [id number] time 17 minutes. Charges/Coding Visit Charges Inpatient E&M: 30893 Init Hosp L2 Procedures Hospitalists Procedures: 78323 Advncd Care Plan 30 Min
--- NOTE | 2023-09-29 13:23 | NURSING ---
PCU KORAM FACIAL DROOP, PARATHESIAS
--- NOTE | 2023-09-29 14:21 | ECHOL_ITS ---
Reason For Study: syncope Procedure This was a limited 2D transthoracic echocardiogram. Exam performed portable in patient room. Left Ventricle Normal LV size. Mild concentric left ventricular hypertrophy. The left ventricular ejection fraction is 55 %. No regional wall motion abnormalities noted. Right Ventricle Normal RV size. Normal systolic function. Atria The left atrium is mildly enlarged. Normal right atrium. Bubble contrast study negative for right to left interatrial shunt. Mitral Valve Normal mitral valve. Tricuspid Valve Normal tricuspid valve. Aortic Valve Trisinus/trileaflet aortic valve. Pulmonic Valve Normal pulmonic valve. Great Vessels Normal aortic root. The pulmonary artery is normal size. Normal inferior vena cava. Pericardium/Pleural No pericardial effusion. Medication Performed a rapid injection of agitated mix of 9 cc saline and 1cc air to assess for atrial septal defect. MMode/2D Measurements & Calculations LVIDd: 3.8 cm IVSd: 1.3 cm LAV(MOD-sp4): 69.4 ml LVIDs: 2.7 cm LVPWd: 1.3 cm FS: 30.8 % LA A4 area: 24.5 cm2 RA A4 area: 18.7 cm2 ECHO/Echo, Limited Study Interpretation Summary Normal LV size. Mild concentric left ventricular hypertrophy. The left ventricular ejection fraction is 55 %. The left atrium is mildly enlarged. Bubble contrast study negative for right to left interatrial shunt. Ordering Physician: Airam Chavze Referring Physician: Hansa Finney D.O. Performed By: aSna Cuadra RCS
--- NOTE | 2023-09-29 14:21 | CT_ITS ---
EXAM: CT ANGIOGRAPHY HEAD AND NECK WITH INTRAVENOUS CONTRAST CLINICAL INDICATION: left facial droop TECHNIQUE: [place]/head and neck CT angiography protocol performed with intravenous contrast. This CT exam was performed using one or more of the following dose reduction techniques: automated exposure control, adjustment of the mA and/or kV according to patient size, and/or use of iterative reconstruction technique. MIP reconstructed images were created and reviewed. CONTRAST: IV 100mL [id number] COMPARISON: CT head on the same date. MRA head and neck and MRI brain, 08/19/2013. FINDINGS: HEAD: RIGHT ANTERIOR CEREBRAL ARTERY: No significant abnormality. No occlusion or significant stenosis. Anterior communicating artery is present. No aneurysm. RIGHT MIDDLE CEREBRAL ARTERY: No significant abnormality. No occlusion or significant stenosis. No aneurysm. RIGHT POSTERIOR CEREBRAL ARTERY: There is a small right posterior communicating artery. No occlusion or significant stenosis. No aneurysm. RIGHT INTRACRANIAL INTERNAL CAROTID ARTERY: No significant abnormality. No significant stenosis. No dissection or occlusion. RIGHT INTRACRANIAL VERTEBRAL ARTERY: No significant abnormality. No significant stenosis. No dissection or occlusion. LEFT ANTERIOR CEREBRAL ARTERY: No significant abnormality. No occlusion or significant stenosis. No aneurysm. LEFT MIDDLE CEREBRAL ARTERY: No significant abnormality. No occlusion or significant stenosis. No aneurysm. LEFT POSTERIOR CEREBRAL ARTERY: Left posterior communicating artery and hypoplastic left P1 posterior cerebral artery segment indicating origin of the left [employer]. No occlusion or significant stenosis. No aneurysm. LEFT INTRACRANIAL INTERNAL CAROTID ARTERY: No significant abnormality. No significant stenosis. No dissection or occlusion. LEFT INTRACRANIAL VERTEBRAL ARTERY: No significant abnormality. No significant stenosis. No dissection or occlusion. BASILAR ARTERY: No significant abnormality. No occlusion or significant stenosis. No aneurysm. OTHER VASCULATURE: No vascular malformation. NECK: RIGHT COMMON CAROTID ARTERY: No significant abnormality. No significant stenosis. No dissection or occlusion. RIGHT EXTRACRANIAL INTERNAL CAROTID ARTERY: Mild atherosclerosis of the right carotid bifurcation and carotid bulb with less than 50% stenosis of the right internal carotid artery by NASCET criteria. No dissection or occlusion. RIGHT EXTERNAL CAROTID ARTERY: No significant abnormality. No occlusion. RIGHT EXTRACRANIAL VERTEBRAL ARTERY: No significant abnormality. No significant stenosis. No dissection or occlusion. LEFT COMMON CAROTID ARTERY: No significant abnormality. No significant stenosis. No dissection or occlusion. LEFT EXTRACRANIAL INTERNAL CAROTID ARTERY: Mild atherosclerosis of the left carotid bifurcation and carotid bulb with less than 50% stenosis of the left internal carotid artery by NASCET criteria. No dissection or occlusion. LEFT EXTERNAL CAROTID ARTERY: No significant abnormality. No occlusion. LEFT EXTRACRANIAL VERTEBRAL ARTERY: No significant abnormality. No significant stenosis. No dissection or occlusion. THYROID: Subcentimeter right thyroid nodule without suspicious features for which no follow-up is indicated. BRACHIOCEPHALIC AND SUBCLAVIAN ARTERIES: Normal as visualized. No occlusion or significant stenosis. AORTA: Atherosclerosis of the aorta. LUNG APICES: Normal as visualized. HEAD and NECK: BONES/JOINTS: Median sternotomy. Degenerative changes in the cervical spine. No discrete lytic or blastic abnormalities. SOFT TISSUES: No significant abnormality. CAROTID STENOSIS REFERENCE USING NASCET CRITERIA: % ICA stenosis = (1 - narrowest ICA diameter/diameter of distal cervical ICA) x 100. Mild - <50% stenosis. Moderate - 50-69% stenosis. Severe - 70-94% stenosis. Near occlusion - 95-99% stenosis. Occluded - 100% stenosis. CT/CTA Head AND Neck W/ Contrast IMPRESSION: No large vessel occlusion or critical arterial stenosis in the head or neck. Electronically Signed: Dhruv Swanson DO at 16:34 EDT ,
[2023-09-29] MEDS: Atorvastatin Calcium 80 MG Tablet PO (22:11)
[2023-09-30] VITALS (8 sets, daily range): BP systolic 132–156; BP diastolic 79–94; PULSE 78–92; RESP 16–18; TEMP 36.6–37.1; O2SAT 94–97; BMI 38.7
[2023-09-30 05:37] LABS: Absolute Lymphocyte Count 0.78 X10^3/uL (0.83-4.51); Absolute Neutrophil Count 5.4 X10^3/uL (2.0-7.7); Basophil# 0.03 X10^3/uL; Basophil% 0.4 % (0-1); Eosinophil# 0.41 X10^3/uL; Eosinophils% 5.5 % (0-5); Hematocrit 43.4 % (40-54); Hemoglobin 14.5 g/dL (13.0-16.5); Lymphocyte # 0.78 X10^3/ul (0.83-4.51); Lymphocyte % 10.5 % (19-41); Mean Corp Hgb Conc 33.4 g/dL (32-36); Mean Corpuscular Hgb 30.6 pg (27.0-32.0); Mean Corpuscular Volume 91.6 fL (80-94); Mean Platelet Vol. 10.1 fl (6.2-12.0); Monocyte# 0.77 X10^3/uL; Monocyte% 10.3 % (0-10); NRBC Flagged by Analyzer 0 % (0-5); Neutrophil # 5.39 X10^3/uL (2.7-7.7); Neutrophil % 72.2 % (47-70); Platelet Count 214 K/mm3 (150-450); RBC Distribution Width CV 13.2 % (11.6-14.6); RBC Distribution Width SD 44.6 fl (35.1-43.9); Red Blood Count 4.74 M/mm3 (4.6-6.2); White Blood Count 7.5 K/mm3 (4.4-11.0)
[2023-09-30 06:02] LABS: Anion Gap 5 (5-15); BUN 11 mg/dL (7-18); BUN/Creat Ratio 12.8 RATIO (10-20); Calcium,Total 8.8 mg/dL (8.5-10.1); Chloride 105 mmol/L (98-107); Cholesterol 148 mg/dL (200); Creatinine, Serum 0.86 mg/dL (0.70-1.30); EST Glomerular Filtration Rate 94 mL/min (>60); Est Glom Filt Rate - Afr Amer 114 mL/min (>60); Estimated Creatinine Clearance 110.95 ml/min; Glucose 120 mg/dL (74-106); High Density Lipoprotein 34 mg/dL; Potassium 3.8 mmol/L (3.5-5.1); Sodium Level 136 mmol/L (136-145); Triglycerides 138 mg/dL; Very Low Density Lipoprotein 28 mg/dL (5-40)
--- NOTE | 2023-09-30 08:00 | MRI_ITS ---
STUDY: MRI BRAIN WITHOUT CONTRAST REASON FOR EXAM: Male, 67 years old. left facial droop TECHNIQUE: Standardized multiplanar fat and water weighted pulse sequences were obtained. COMPARISON: Head CT dated September 29, 2023 FINDINGS: There is mild cerebral atrophy with widening of the extra-axial spaces and ventricular dilatation. There are a limited number of small white matter hyperintensities, distributed throughout the deep white matter tracts of the cerebral hemispheres, consistent with mild chronic white matter ischemic changes. There is no evidence for recent intracranial ischemia or other cause of cytotoxic edema on diffusion weighted imaging (DWI). Normal T2* images of the brain without demonstrated susceptibility artifact. There is no demonstrated hemosiderin stain. There are no demyelinating plagues of the supratentorial brain, brainstem or cerebellum. There are no findings suspicious for multiple sclerosis (MS). Normal bilateral basal ganglia. Normal thalami. There is no extra-axial fluid accumulation. Normal flow voids within the major intracranial circulation suggesting patency by spin echo criteria. Normal sella turcica, pituitary gland, infundibular stalk, optic chiasm and hypothalamus. Normal tectal plate and pineal gland. Normal midbrain, arun and medulla. Normal cerebellum. Normal basal cisterns. Normal bilateral temporal bones. Normal bilateral internal auditory canals. No demonstrated orbital abnormality, within the constraints of a routine brain study. Normal visualized paranasal sinuses. Normal calvarium and skull base. Normal visualized soft tissue structures. Normal visualized upper cervical spine. MRI/Brain without Contrast IMPRESSION: 1. Involutional changes of the brain, as described above. 2. No demonstrated acute infarct or intracranial hemorrhage. Electronically Signed: Kota Abraham MD at 14:48 EDT ,
[2023-09-30] MEDS: Clopidogrel Bisulfate 75 MG Tablet PO (09:39)
[2023-09-30] MEDS: Aspirin 81 MG TAB.CHEW 162 MG PO (09:39)
[2023-09-30] MEDS: Enoxaparin 40 MG/0.4 ML Syringe SC (09:39)
[2023-09-30] MEDS: Cholecalciferol (Vit D3) 125 MCG CAPSULE (5,000 UNITS) PO (09:39)
[2023-09-30] MEDS: Ascorbic Acid 500 MG Tablet 1000 MG PO (09:43)
--- NOTE | 2023-09-30 10:43 | PN.HOSP_ITS ---
Reason for Visit Reason for Visit: Diagnoses Paresthesia of skin (09/29/23) Facial weakness (09/29/23) Objective Data Objective Data Vital Signs: Vital Signs Temp Pulse Resp BP Pulse Ox O2 Del Method 97.9 F 88 16 139/90 H 95 Room Air 09/30/23 09:30 09/30/23 09:30 09/30/23 09:30 09/30/23 09:30 09/30/23 09:30 09/30/23 09:30 Oxygen Delivery Method Room Air Weight: 270 lb 4.587 oz Body Mass Index (BMI) 38.7 Intake & Output: Intake and Output for Last 24 Hours 09/28/23 09/29/23 09/30/23 23:59 23:59 23:59 Intake Total 1620 / 1620 Balance 1620 / 1620 Lab / Micro Data 09/30/23 04:53 09/30/23 04:53 Labs: Laboratory Results - last 24 hr 09/29/23 11:13: WBC 9.0, RBC 4.93, Hgb 15.1, Hct 45.0, MCV 91.3, MCH 30.6, MCHC 33.6, RDW Std Deviation 44.9 H, RDW Coeff of Cleve 13.3, Plt Count 217, MPV 9.9, I mmature Gran % (Auto) 1.100 H, Neut % (Auto) 76.7 H, Lymph % (Auto) 7.6 L, [place] % (Auto) 9.5, Eos % (Auto) 4.3, Baso % (Auto) 0.8, Absolute Neuts (auto) 6.9, A bsolute Lymphs (auto) 0.68 L, Nucleated RBC % 0, Sodium 138, Potassium 4.0, C hloride 109 H, Carbon Dioxide 27.0, Anion Gap 2 L, BUN 13, Creatinine 0.97, Estim Creat Clear Calc 99.56, Est GFR (MDRD) Af Amer 99, Est GFR (MDRD) Non-Af 82, BUN/Creatinine Ratio 13.4, Glucose 119 H, Calcium 8.7 09/30/23 04:53: WBC 7.5, RBC 4.74, Hgb 14.5, Hct 43.4, MCV 91.6, MCH 30.6, MCHC 33.4, RDW Std Deviation 44.6 H, RDW Coeff of Cleve 13.2, Plt Count 214, MPV 10.1, Immature Gran % (Auto) 1.100 H, Neut % (Auto) 72.2 H, Lymph % (Auto) 10.5 L, M monico % (Auto) 10.3 H, Eos % (Auto) 5.5 H, Baso % (Auto) 0.4, Absolute Neuts (auto) 5.4, Absolute Lymphs (auto) 0.78 L, Nucleated RBC % 0, Sodium 136, Potassium 3.8, Chloride 105, Carbon Dioxide 26.0, Anion Gap 5, BUN 11, Creatinine 0.86, Estim Creat Clear Calc 110.95, Est GFR (MDRD) Af Amer 114, Est GFR (MDRD) Non-Af 94, BUN/Creatinine Ratio 12.8, Glucose 120 H, Calcium 8.8, Triglycerides 138, Cholesterol 148, LDL Cholesterol 86, VLDL Cholesterol 28, HDL Cholesterol 34 L Radiography Diagnostic Testing: Radiology Impression Brain CT 09/29/23 11:03 IMPRESSION: Chronic involutional changes of the brain. No acute hemorrhage Electronically Signed: Sanjeev Rdz MD at 11:34 EDT , Head/Neck CTA 09/29/23 14:21 IMPRESSION: No large vessel occlusion or critical arterial stenosis in the head or neck. Electronically Signed: Dhruv Swanson DO at 16:34 EDT , Physical Exam Narrative Seen and examined. Patient admitted with left facial droop. He felt like his left ear is plugged and mild soreness and probably tinnitus. Has chronic left hearing loss. No fever or skin rash or vesicles Physical exam General: Alert, Oriented x3, Cooperative HEENT: Atraumatic, PERRLA, EOMI, Normocephalic. No mastoid or bony tenderness. Oral: No Gingival or Mucosal Lesions/ Ulcerations Neck: Supple, No JVD, Negative Carotid Bruits Chest wall/Lungs: Air entry diminished in bilateral lung bases. No crepitation/rhonchi Cardiovascular: Regular rate, Regular Rhythm, Normal S1, Normal S2, No M/G/R Abdomen: Bowel Sounds Present, Soft, Non Tender, Non-Distended : No dysuria. No renal angle tenderness. No suprapubic tenderness. Extremities: No edema, Capillary Refill Less than 3 Seconds Skin: No rashes, No breakdown Musculoskeletal: No Tenderness to Palpation of Joints or Extremities Neurological: Left facial droop, upper motor neuron lesion. Decreased sensation on the left side. NIH stroke scale 2 Psych/Mental Status: Normal Affect, Appropriate. Assessment & Plan Assessment/Plan (1) Facial droop: (2) Facial paresthesia: PLAN: Plan #Right facial droop, to rule out a stroke * admit to PCU * right facial droop noted 4 days ago, so patient not a TNK candidate * NIHSS is 2, minor left facial paralysis, upper motor neuron lesion with decreased sensation on the left side. * hold BP meds * CT of the brain showed no acute intracranial pathology * MRI of the brain and 2D echo are ordered. Teleneurology consulted. * PT/OT consult * hold BP meds to allow for permissive hypertension in the event of a stroke * PO aspirin 81mg daily and continue statin * fall precautions #Hypertension; BP meds on hold to allow for permissive hypertension #Hyperlipidemia: on statin DVT prophylaxis: lovenox Code status: Full code * Patient counseled extensively about different types of CODE STATUS including full code, DNR CCA and DNR CCA. Patient elects to be full code. Charges/Coding Visit Charges Inpatient E&M: 35674 Subs Hosp L2
--- NOTE | 2023-09-30 15:56 | STROKE.CONS ---
Assessment and Plan: Stroke Assessment/Plan LORIE MERCADO is a 67 M with a history of cardiovascular risk factors including HTN, aortic aneurysm S/P repair who presents for evaluation of 4 day history of right facial droop with mild numbness of the right face. Examination is notable for upper and lower facial weakness. Stroke workup including CT head and CTA were negative for acute abnormalities as well as significant stenosis. Patient also reports fullness sensation in his right ear. 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 Since there was atypical feature (i.e., less severe involvement of the upper face) with some subjective numbness, brain MRI was obtained. MRI was pending when I saw the patient on telestroke. It has now resulted as negative for acute ischemic. This further suggests Fan's plays as the etiology given unilateral upper and lower facial involvement. Recommend: Prednisone taper over 2 weeks. Eye drops to protect the right eye. eye patch while sleeping. monitor blood sugar while on prednisone. I discussed that with the patient. Cardiovascular risk factors control BP < 130/80 Daily ASA LDL < 70 statin. Blood sugar control. [Quick text reminder: .OSUtnk/.OSUnontnk] HPI Consult Data Date of Consult: 09/30/23 HPI Narrative HPI Narrative: LORIE MERCADO, is a 67 M who presents with a 4 day history of right facial droop. He was told that the right side of his face is drooping and he presented to the hospital for it. He reports fullness sensation in his right ear and blinking of the right eye as well. He reports no other neurological symptoms. [facility] Medical History (Updated 09/29/23 @ 15:59 by Kesha Howard) Atrial flutter Vertigo Vitamin D deficiency Mixed hyperlipidemia EDUARDO (obstructive sleep apnea) Essential (primary) hypertension CAD (coronary artery disease) Aortic insufficiency Thoracic ascending aortic aneurysm Interstitial pulmonary fibrosis Gastritis Cervical radiculopathy Lumbar radiculopathy BPH (benign prostatic hyperplasia) Balance disorder Headache Abnormal lung function test Abnormal stress test Home Medications ?Medication ?Instructions ?Recorded ?Last Taken ?Type aspirin 81 mg chewable tablet 162 mg PO DAILY@0800 02/23/15 09/29/23 History benazepril 20 mg tablet 20 mg PO DAILY 07/08/19 09/29/23 History amlodipine 5 mg tablet 5 mg PO QDAY 09/24/23 09/29/23 History ascorbic acid (vitamin C) 1,000 mg 1 g PO DAILY 09/24/23 09/29/23 History capsule cholecalciferol (vitamin D3) 125 125 mcg PO DAILY 09/24/23 Unknown History mcg (5,000 unit) capsule cinnamon bark 500 mg capsule 500 mg PO DAILY 09/24/23 09/29/23 History metoprolol tartrate 25 mg tablet 25 mg PO BID 09/24/23 09/29/23 History Allergy/AdvReac Type Severity Reaction Status Date / Time No Known Allergies Allergy Verified 09/29/23 10:50 Family History Grandfather Myocardial infarction Mother Hypertension Father Prostate cancer Surgical History History of bilateral knee replacement H/O aortic root repair (~02/2014) Social History Smoking Status: Never smoker alcohol intake: current alcohol intake frequency: holidays/special occasions only substance use type: does not use Vital Signs Vital Signs Vital Signs: 09/29/23 16:30 09/29/23 18:05 09/29/23 20:30 Temperature 97.9 F Temperature Source Oral Pulse Rate 74 Pulse Strength Respiratory Rate 16 Respiratory Effort Normal Non-Labored Respiratory Depth Normal Respiratory Pattern Normal Blood Pressure 145/93 H Blood Pressure Mean 110 Blood Pressure Source Monitor Blood Pressure Position Semi-Fowlers Blood Pressure Location Right Arm Pulse Ox 96 95 Oxygen Delivery Method Room Air Room Air Room Air 09/29/23 22:04 09/29/23 22:10 09/30/23 02:04 Temperature 98.2 F 98.0 F Temperature Source Oral Oral Pulse Rate 75 85 Pulse Strength Normal (2+) Respiratory Rate 18 18 Respiratory Effort Respiratory Depth Respiratory Pattern Blood Pressure 137/81 H 149/82 H Blood Pressure Mean 99 104 Blood Pressure Source Monitor Monitor Blood Pressure Position Semi-Fowlers Supine Blood Pressure Location Right Arm Right Arm Pulse Ox 96 96 Oxygen Delivery Method Room Air Room Air 09/30/23 02:14 09/30/23 06:02 09/30/23 07:16 Temperature 98.3 F Temperature Source Oral Pulse Rate 78 Pulse Strength Respiratory Rate 18 Respiratory Effort Normal Non-Labored Respiratory Depth Normal Respiratory Pattern Normal Blood Pressure 153/86 H Blood Pressure Mean 108 Blood Pressure Source Monitor Blood Pressure Position Supine Blood Pressure Location Right Arm Pulse Ox 97 94 Oxygen Delivery Method Room Air Room Air Room Air 09/30/23 08:16 09/30/23 09:27 09/30/23 09:30 Temperature 97.9 F Temperature Source Oral Pulse Rate 88 Pulse Strength Respiratory Rate 16 Respiratory Effort Normal Non-Labored Respiratory Depth Normal Respiratory Pattern Normal Blood Pressure 139/90 H Blood Pressure Mean 106 Blood Pressure Source Blood Pressure Position Blood Pressure Location Pulse Ox 96 95 Oxygen Delivery Method Room Air Room Air 09/30/23 13:30 09/30/23 13:40 09/30/23 15:27 Temperature 97.8 F 98.2 F Temperature Source Oral Oral Pulse Rate 83 92 Pulse Strength Respiratory Rate 18 18 Respiratory Effort Normal Non-Labored Respiratory Depth Normal Respiratory Pattern Normal Blood Pressure 155/91 H 156/94 H Blood Pressure Mean 112 114 Blood Pressure Source Blood Pressure Position Blood Pressure Location Pulse Ox 95 94 Oxygen Delivery Method Room Air Room Air Room Air Weight Weight: 122.6 kg Body Mass Index (BMI) 38.7 NIHSS NIHSS Nursing Documentation NIHSS Nursing Documentation: NIH Stroke Scale Start: 09/29/23 10:59 Freq: Status: Discharge Protocol: Activity Type Activity Date Activity User E-sign Co-sign Detail Recorded Client Recorded Date Recorded By Document 09/29/23 10:59 [id number] 09/29/23 11:00 09/29/23 10:59 NIH Stroke Scale [NIHSS] A score of 0 is normal or asymptomatic . Total possible score is 42. Inpatient: RN or Physician to activate a stroke alert for onset of new stroke symptoms or with NIHSS increase >/= 3 points. Following change in neurological status, NIHSS will be performed per physician order or more frequently PRN. -1a. Level of Consciousness Alert; keenly responsive -1b. LOC Questions Answers BOTH questions correctly. -1c. LOC Commands Performs both tasks correctly . -2. Best Gaze Normal -3. Visual No visual loss -4. Facial Palsy Moderate paralysis -5a. Left Arm No drift; arm holds 90 (or 45 ) degrees for full 10 seconds -5b. Right Arm No drift; arm holds 90 (or 45 ) degrees for full 10 seconds -6a. Left Leg No drift; leg holds 30-degree position for full 5 seconds -6b. Right Leg No drift; leg holds 30-degree position for full 5 seconds -7. Limb Ataxia Absent -8. Sensory Mild-to- moderate sensory loss; -9. Best Language No aphasia; normal -10. Dysarthria Normal -11. Extinction and Inattention No abnormality -Total 3 Query Text:A score of 0 is normal or asymptomatic. Total possible score is 42 . ED: Notify Physician for NIHSS increase by > / = 3 points. Inpatient: RN or Physician to activate a stroke alert for NIHSS increase of > / = 3 points. NIHSS: Ischemic Stroke/TIA Start: 09/29/23 14:21 Text: For ICU Patients: NIH sroke scale at Status: Complete presentation and every 2 hours or with change in RN caregiver Freq: [id number] Protocol: Activity Type Activity Date Activity User E-sign Co-sign Detail Recorded Client Recorded Date Recorded By Document 09/29/23 14:20 SS desktop 09/29/23 14:37 SS 09/29/23 14:20 -1a. Level of Consciousness Alert; keenly responsive -1b. LOC Questions Answers BOTH questions correctly. -1c. LOC Commands Performs both tasks correctly . -2. Best Gaze Normal -3. Visual No visual loss -4. Facial Palsy moderate paralysis -5a. Left Arm No drift; arm holds 90 (or 45 ) degrees for full 10 seconds -5b. Right Arm No drift; arm holds 90 (or 45 ) degrees for full 10 seconds -6a. Left Leg No drift; leg holds 30-degree position for full 5 seconds -6b. Right Leg No drift; leg holds 30-degree position for full 5 seconds -7. Limb Ataxia Absent -8. Sensory Mild-to- moderate sensory loss; -9. Best Language No aphasia; normal -10. Dysarthria Normal -11. Extinction and Inattention No abnormality -Total 3 Query Text:A score of 0 is normal or asymptomatic. Total possible score is 42 . ED: Notify Physician for NIHSS increase by > / = 3 points. Inpatient: RN or Physician to activate a stroke alert for NIHSS increase of > / = 3 points. Coma Scale [Assess] -Eye Opening Spontaneous -Motor Obeys Commands -Verbal Oriented [Total] -Coma Scale Total 15 NIHSS: Ischemic Stroke/TIA Start: 09/29/23 14:21 Text: For PCU Patients: NIH and Neuro Check every 4 Status: Complete hours, PRN and with change in RN caregiver. Freq: [id number] Protocol: Activity Type Activity Date Activity User E-sign Co-sign Detail Recorded Client Recorded Date Recorded By Document 09/30/23 13:30 MM desktop 09/30/23 13:32 MM 09/30/23 13:30 NIH Stroke Scale [NIHSS] A score of 0 is normal or asymptomatic . Total possible score is 42. Inpatient: RN or Physician to activate a stroke alert for onset of new stroke symptoms or with NIHSS increase >/= 3 points. Following change in neurological status, NIHSS will be performed per physician order or more frequently PRN. -1a. Level of Consciousness Alert; keenly responsive -1b. LOC Questions Answers BOTH questions correctly. -1c. LOC Commands Performs both tasks correctly . -2. Best Gaze Normal -3. Visual No visual loss -4. Facial Palsy Minor paralysis (flattened nasolabial fold , asymmetry on smiling) -5a. Left Arm No drift; arm holds 90 (or 45 ) degrees for full 10 seconds -5b. Right Arm No drift; arm holds 90 (or 45 ) degrees for full 10 seconds -6a. Left Leg No drift; leg holds 30-degree position for full 5 seconds -6b. Right Leg No drift; leg holds 30-degree position for full 5 seconds -7. Limb Ataxia Absent -8. Sensory Mild-to- moderate sensory loss; -9. Best Language No aphasia; normal -10. Dysarthria Normal -11. Extinction and Inattention No abnormality -Total 2 Query Text:A score of 0 is normal or asymptomatic. Total possible score is 42 . ED: Notify Physician for NIHSS increase by > / = 3 points. Inpatient: RN or Physician to activate a stroke alert for NIHSS increase of > / = 3 points. Coma Scale [Assess] -Eye Opening Spontaneous -Motor Obeys Commands -Verbal Oriented [Total] -Coma Scale Total 15 NIHSS 1a. Level of Consciousness: Alert; keenly responsive 1b. LOC Questions: Answers BOTH questions correctly. 1c. LOC Commands: Performs both tasks correctly. 2. Best Gaze: Normal 3. Visual: No visual loss 4. Facial Palsy: Partial paralysis (total or near-total paralysis of lower face) 5a. Left Arm: No drift; arm holds 90 (or 45) degrees for full 10 seconds 5b. Right Arm: No drift; arm holds 90 (or 45) degrees for full 10 seconds 6a. Left Leg: No drift; leg holds 30-degree position for full 5 seconds 6b. Right Leg: No drift; leg holds 30-degree position for full 5 seconds 7. Limb Ataxia: Absent 8. Sensory: [id number] sensory loss; 9. Best Language: No aphasia; normal 10. Dysarthria: Normal 11. Extinction and Inattention: No abnormality Total: 3 Lab / Micro Data 09/30/23 04:53 09/30/23 04:53 Labs: Laboratory Results - last 24 hr 09/30/23 04:53: WBC 7.5, RBC 4.74, Hgb 14.5, Hct 43.4, MCV 91.6, MCH 30.6, MCHC 33.4, RDW Std Deviation 44.6 H, RDW Coeff of Cleve 13.2, Plt Count 214, MPV 10.1, Immature Gran % (Auto) 1.100 H, Neut % (Auto) 72.2 H, Lymph % (Auto) 10.5 L, [place] % (Auto) 10.3 H, Eos % (Auto) 5.5 H, Baso % (Auto) 0.4, Absolute Neuts (auto) 5.4, Absolute Lymphs (auto) 0.78 L, Nucleated RBC % 0, Sodium 136, Potassium 3.8, Chloride 105, Carbon Dioxide 26.0, Anion Gap 5, BUN 11, Creatinine 0.86, Estim Creat Clear Calc 110.95, Est GFR (MDRD) Af Amer 114, Est GFR (MDRD) Non-Af 94, BUN/Creatinine Ratio 12.8, Glucose 120 H, Calcium 8.8, Triglycerides 138, Cholesterol 148, LDL Cholesterol 86, VLDL Cholesterol 28, HDL Cholesterol 34 L Imaging Radiology Impression Head/Neck CTA 09/29/23 14:21 IMPRESSION: No large vessel occlusion or critical arterial stenosis in the head or neck. Electronically Signed: Dhruv Swanson DO at 16:34 EDT , Brain MRI 09/30/23 08:00 IMPRESSION: 1. Involutional changes of the brain, as described above. 2. No demonstrated acute infarct or intracranial hemorrhage. Electronically Signed: Kota Abraham MD at 14:48 EDT Reading Location ID and State: [address] [place] [address] , Service support , Active Medications Active Medications Active Medications: Current Medications Generic Name Dose Route Start Last Admin Trade Name Freq PRN Reason Stop Dose Admin Acetaminophen 650 mg 09/29/23 14:21 Acetaminophen 325 Mg Tablet PO Q6H PRN PRN Pain 1-10 Or Fever >100.7 Ascorbic Acid 1,000 mg 09/30/23 10:00 09/30/23 09:43 Ascorbic Acid 500 Mg Tablet PO 1,000 mg DAILY JOAN Administration Aspirin 162 mg 09/30/23 08:00 09/30/23 09:39 Aspirin 81 Mg Tab.Chew PO 162 mg DAILYCM JOAN Administration Atorvastatin Calcium 80 mg 09/29/23 22:00 09/29/23 22:11 Atorvastatin Calcium 80 Mg Tablet PO 80 mg QHS JOAN Administration Cholecalciferol 125 mcg 09/30/23 10:00 09/30/23 09:39 Cholecalciferol (Vit D3) 125 Mcg Capsule (5,000 Units) PO 125 mcg DAILY JOAN Administration Clopidogrel Bisulfate 75 mg 09/30/23 10:00 09/30/23 09:39 Clopidogrel Bisulfate 75 Mg Tablet PO 75 mg DAILY JOAN Administration Enoxaparin Sodium 40 mg 09/30/23 10:00 09/30/23 09:39 Enoxaparin 40 Mg/0.4 Ml Syringe SC 40 mg DAILY JOAN Administration Sodium Chloride 250 mls @ 15 mls/hr 09/29/23 14:38 IV .[id number] PRN Additional IVPB Infusion Sodium Chloride 250 mls @ 15 mls/hr 09/29/23 14:38 IV .[id number] PRN Saline Flush Nitroglycerin 0.4 mg 09/29/23 14:21 Nitroglycerin (Inpatient Use) 0.4 Mg Tab.Subl SL Q5M PRN CARDIAC/CHEST PAIN Ondansetron HCl 4 mg 09/29/23 14:21 Ondansetron 4 Mg/2 Ml Vial IV Q8H PRN PRN NAUSEA/VOMITING Sodium Chloride 10 - 40 ml 09/29/23 14:38 0.9% Saline Lock 10 Ml Syringe IV UD PRN SALINE FLUSH
[2023-09-30] MEDS: Atorvastatin Calcium 80 MG Tablet PO (22:09)
[2023-10-01 02:35] VITALS: BMI 38.7
[2023-10-01 03:20] LABS: Thyroid Stim Hormone (TSH) 3.09 uIU/mL (0.358-3.74)
[2023-10-01 05:10] VITALS: BP 150/87; PULSE 93; RESP 18; TEMP 36.4; O2SAT 95
[2023-10-01 08:33] VITALS: BP 141/97; PULSE 89; RESP 16; TEMP 36.4; O2SAT 96
[2023-10-01] MEDS: Enoxaparin 40 MG/0.4 ML Syringe SC (08:39)
[2023-10-01] MEDS: Acetaminophen 325 MG Tablet 650 MG PO (08:41)
[2023-10-01] MEDS: Ascorbic Acid 500 MG Tablet 1000 MG PO (08:42)
[2023-10-01] MEDS: Clopidogrel Bisulfate 75 MG Tablet PO (08:42)
[2023-10-01] MEDS: Aspirin 81 MG TAB.CHEW 162 MG PO (08:42)
[2023-10-01] MEDS: Cholecalciferol (Vit D3) 125 MCG CAPSULE (5,000 UNITS) PO (08:42)
[2023-10-01 09:56] VITALS: O2SAT 95
--- NOTE | 2023-10-01 10:12 | PCM.DC ---
Discharge Instructions Diet Discharge Diet: 2000 mg Sodium Diet Activity Discharge Activity: Return to Normal Activity Weight Bearing Status: Weight bearing as tolerated Dressing / Incision Call your doctor if you observe: Fever of 101 or Higher, Coldness, Increased Pain, Numbness or Tingling, Change in Color, Inability to urinate, Inability to have a bowel movement, Shortness of breath, Dizziness, Fainting spells, Swelling in the ankles, Chest pain, Prolonged hiccupping, Increased palpitations (irregular heartbeat) and Calf discomfort Follow Up Care When: IN 2 WEEKS Test Results: Test results from this visit will be discussed in further detail at your follow-up appointment, if applicable. Discharge Plan Admission Admit Date/Time: 09/29/23 12:08 Primary Reason for Your Visit: Right facial nerve palsy, Fan's palsy Attending Provider: Esequiel Hernandes Primary Care Provider: Hansa Finney Consulting Providers: Sarwat Rausch; Nik Friend; Liz Sprague; Yvette William; Cecy Nowak; Danial Hernandez; Sofia Pires; Drake Fierro; Say Olvera; Daniel Armando; Magali Gilbert; Jw Membreno; Edyta Howell; Julius Pascual; Beata Smith; Tuan Ruvalcaba; Karolyn Pimentel; Boy Thomas; Erika Garcia; Anibal Early; Airam Chavez Instructions Additional Instructions / Restrictions: Follow-up with the neurologist Dr. Meng Be in 2 weeks Advised right eye patching while sleep and artificial tears eyedrops to protect right eye for dryness Discharge Orders/Prescriptions Prescriptions: New prednisone 20 mg Tablet See Taper PO BREAKFAST Qty: 26 0RF Taper: Prednisone Taper 60 mg WITH BREAKFAST for 5 Days and 0 Hour 40 mg WITH BREAKFAST for 3 Days and 0 Hour 20 mg WITH BREAKFAST for 3 Days and 0 Hour 10 mg WITH BREAKFAST for 3 Days and 0 Hour Rx Instructions: 60 mg with breakfast for 5 Days;40 mg for 3 Days;20 mg for 3 Days;10 mg for 3 Days Artificial Tears([id number]) 1-0.2-0.2 % Drops 1 drp RIGHT EYE Q1H PRN (Reason: Dry Eyes) Qty: 15 0RF atorvastatin 20 mg tablet 20 mg PO QHS 30 Days Qty: 30 3RF Continued amlodipine 5 mg tablet 5 mg PO QDAY metoprolol tartrate 25 mg tablet 25 mg PO BID cholecalciferol (vitamin D3) 125 mcg (5,000 unit) capsule 125 mcg PO DAILY ascorbic acid (vitamin C) 1,000 mg capsule 1 g PO DAILY cinnamon bark 500 mg capsule 500 mg PO DAILY aspirin 81 MG tablet,chewable 162 mg PO DAILY@0800 benazepril 20 MG tablet 20 mg PO DAILY Referrals / Follow Up: Hansa Finney DO [Primary Care Provider] - Haile Fan MD [Non-Staff] - Within 2 Weeks Disposition Disposition (needs filled in before D/C Order can be placed): Home, Self Care
--- NOTE | 2023-10-01 10:47 | CASEMGMT ---
SW did not complete a PHQ 9 as per physician patient did not have a Stroke or TIA. Shila RIVERA
--- NOTE | 2023-10-01 11:58 | PCM.DC.SUM ---
Providers Date of Admission: 09/29/23 Date of Discharge: 10/01/23 Primary Care Physician: Dr. Hansa Finney, DO Consultations 09/29/23 14:21 Consult: Tele-Neurology Routine Consulting Provider: [facility] Reason for Consult: Acute Ischemic Stroke/TIA EMERGENT Consult: No MD Notified: Yes Date Notified: 09/29/23 Time Notified: 15:49 Method of Notification: Answering Service Nursing Unit Staff Notify [facility] of Tele-Neurology Consult: Yes Reason For Visit: RIGHT FACIAL DROOP Diagnosis Discharge Diagnosis (1) Facial droop: Status: Acute Code(s): R29.810 - Facial weakness (2) Facial paresthesia: Status: Acute Code(s): R20.2 - Paresthesia of skin Plan This is 67-year-old gentleman who was admitted with right-sided facial droop that was noticed 4 days before admission. Patient also felt numbness on the right side of the face noticed about an hour ago. No any other focal neurological deficit. #Right facial droop, most likely due to right facial nerve, lower motor neuron palsy Fan's palsy admit to PCU right facial droop noted 4 days ago, so patient not a TNK candidate NIHSS is 2, minor left facial paralysis, LMN palsy with decreased sensation on the decreased blinking of the right eye hold BP meds CT of the brain showed no acute intracranial pathology MRI of the brain negative for acute stroke. Teleneurology was consulted. Recently had 2D echo showed EF 65% normal LV size stage I diastolic dysfunction and moderately enlarged suggestive of mild HFpEF. There is no bubble study therefore limited echo with bubble contrast study shows EF 55% with mild LVH. Bubble contrast study negative for interatrial shunt. Daily neurologist recommended prednisone taper over 2 weeks, artificial tears eyedrops to protect right eye and right eye patching while sleeping. Advised to monitor glucose while on prednisone in consultation with PCP. PT/OT consult was done Continue antihypertensive medication PO aspirin 81mg daily and continue statin. Fasting profile shows LDL 86, HDL 34 and triglyceride normal 138 therefore low-dose atorvastatin 20 mg daily ordered. Follow-up with neurologist in 2 weeks Patient already on baby aspirin at home. #Hypertension; BP is controlled. #Hyperlipidemia: on statin DVT prophylaxis: lovenox Code status: Full code Discharge medication reconciliation done. Discharge follow-up instructions completed. Discharge process discussed with the patient and all questions were answered to patient's satisfaction. Follow with PCP in 1 to 2 weeks Total time spent, exact 35 minutes on discharge meds reconciliation, examination, coordination of care with nurses and ancillary staff, review of imaging and blood test and discussion with the patient on follow-up instructions. Medications at Discharge Home Medications aspirin 81 mg chewable tablet 162 mg PO DAILY@0800 02/23/15 benazepril 20 mg tablet 20 mg PO DAILY 07/08/19 amlodipine 5 mg tablet 5 mg PO QDAY 09/24/23 ascorbic acid (vitamin C) 1,000 mg capsule 1 g PO DAILY 09/24/23 cholecalciferol (vitamin D3) 125 mcg (5,000 unit) capsule 125 mcg PO DAILY 09/24/23 cinnamon bark 500 mg capsule 500 mg PO DAILY 09/24/23 metoprolol tartrate 25 mg tablet 25 mg PO BID 09/24/23 atorvastatin 20 mg tablet 20 mg PO QHS 1 month #30 tabs 10/01/23 peg [id number] 1 %-0.2 %-0.2 % eye drops (Artificial Tears ([id number])) 1 drp RIGHT EYE Q1H PRN Dry Eyes #15 mL 10/01/23 prednisone 20 mg tablet See Taper PO BREAKFAST #26 tabs 10/01/23 Physical Exam Narrative Seen and examined. Patient admitted with left facial droop. Has decreased blinking on the left side. He felt like his left ear is plugged and mild soreness and probably tinnitus. Has chronic left hearing loss. No fever or skin rash or vesicles Physical exam General: Alert, Oriented x3, Cooperative HEENT: Atraumatic, PERRLA, EOMI, Normocephalic. No mastoid or bony tenderness. Oral: No Gingival or Mucosal Lesions/ Ulcerations Neck: Supple, No JVD, Negative Carotid Bruits Chest wall/Lungs: Air entry diminished in bilateral lung bases. No crepitation/rhonchi Cardiovascular: Regular rate, Regular Rhythm, Normal S1, Normal S2, No M/G/R Abdomen: Bowel Sounds Present, Soft, Non Tender, Non-Distended : No dysuria. No renal angle tenderness. No suprapubic tenderness. Extremities: No edema, Capillary Refill Less than 3 Seconds Skin: No rashes, No breakdown Musculoskeletal: No Tenderness to Palpation of Joints or Extremities Neurological: Left facial droop, with decreased blinking, lower motor neuron paralysis. Decreased sensation on the left side. NIH stroke scale 2 Psych/Mental Status: Normal Affect, Appropriate. Weight / BMI Weight Weight: 270 lb 4.587 oz Body Mass Index (BMI) 38.7 ABG / Lab / Microbiology Data 09/30/23 04:53 09/30/23 04:53 Laboratory: Laboratory Results - last 24 hr 09/30/23 04:53: Hemoglobin A1c 6.0 H, TSH 3.09 Radiography Diagnostic Testing: Radiology Impression Brain MRI 09/30/23 08:00 IMPRESSION: 1. Involutional changes of the brain, as described above. 2. No demonstrated acute infarct or intracranial hemorrhage. Electronically Signed: Kota Abraham MD at 14:48 EDT Reading Location ID and State: [facility] / [place] , Service support , D/C Instructions Discharge Diet: 2000 mg Sodium Diet Weight Bearing Status: Weight bearing as tolerated Call your doctor if you observe: Fever of 101 or Higher, Coldness, Increased Pain, Numbness or Tingling, Change in Color, Inability to urinate, Inability to have a bowel movement, Shortness of breath, Dizziness, Fainting spells, Swelling in the ankles, Chest pain, Prolonged hiccupping, Increased palpitations (irregular heartbeat) and Calf discomfort When: IN 2 WEEKS Meaningful Use Info Meaningful Use Meaningful Use Diagnoses (Choose all that apply): None applicable Ischemic Stroke Statin Dosing Therapy Reference: STATIN DOSE THERAPY REFERENCE: * Patients > 75 years receive moderate or high dose statin therapy. * Patients 75 years or YOUNGER should receive HIGH intensity statin dose unless contraindicated. You will be required to document reason for non-treatment if statin daily dose does not meet guidelines. HIGH DOSE STATIN THERAPY DAILY Atorvastatin > than or = to 40 mg Rosuvastatin > than or = to 20 mg Amlodipine + Atorvastatin > than or = to 2.5/40 mg Ezetimibe + Simvastatin 10/80 mg Simvastatin 80mg Discharge Plan Admission Admit Date/Time: 09/29/23 12:08 Primary Reason for Your Visit: Right facial nerve palsy, Fan's palsy Attending Provider: Esequiel Hernandes Primary Care Provider: Hansa Finney Consulting Providers: Sarwat Rausch; Nik Friend; Liz Sprague; Yvette William; Cecy Nowak; Danial Hernandez; Sofia Pires; Drake Fierro; Say Olvera; Daniel Armando; Magali Gilbert; Jw Membreno; Edyta Howell; Julius Pascual; Beata Smith; Tuan Ruvalcaba; Karolyn Pimentel; Boy Thomas; Erika Garcia; Anibal Early; Airam Chavez Instructions Additional Instructions / Restrictions: Follow-up with the neurologist Dr. Meng Be in 2 weeks Advised right eye patching while sleep and artificial tears eyedrops to protect right eye for dryness Discharge Orders/Prescriptions Prescriptions: New prednisone 20 mg Tablet See Taper PO BREAKFAST Qty: 26 0RF Taper: Prednisone Taper 60 mg WITH BREAKFAST for 5 Days and 0 Hour 40 mg WITH BREAKFAST for 3 Days and 0 Hour 20 mg WITH BREAKFAST for 3 Days and 0 Hour 10 mg WITH BREAKFAST for 3 Days and 0 Hour Rx Instructions: 60 mg with breakfast for 5 Days;40 mg for 3 Days;20 mg for 3 Days;10 mg for 3 Days Artificial Tears([id number]) 1-0.2-0.2 % Drops 1 drp RIGHT EYE Q1H PRN (Reason: Dry Eyes) Qty: 15 0RF atorvastatin 20 mg tablet 20 mg PO QHS 30 Days Qty: 30 3RF Continued amlodipine 5 mg tablet 5 mg PO QDAY metoprolol tartrate 25 mg tablet 25 mg PO BID cholecalciferol (vitamin D3) 125 mcg (5,000 unit) capsule 125 mcg PO DAILY ascorbic acid (vitamin C) 1,000 mg capsule 1 g PO DAILY cinnamon bark 500 mg capsule 500 mg PO DAILY aspirin 81 MG tablet,chewable 162 mg PO DAILY@0800 benazepril 20 MG tablet 20 mg PO DAILY Referrals / Follow Up: Hansa Finney, [Primary Care Provider] - Haile Fan MD [Non-Staff] - Within 2 Weeks Disposition Disposition (needs filled in before D/C Order can be placed): Home, Self Care Charges/Coding Visit Charges Inpatient E&M: 21144 Disch Hosp >30min
[2023-10-01 12:17] VITALS: BMI 38.7
[2023-10-01] MEDS: predniSONE 20 MG Tablet 60 MG PO (12:28)
[2023-10-01 14:05] VITALS: BMI 38.7
--- NOTE | 2023-10-01 14:25 | CASEMGMT ---
Met with patient to complete HUIZAR form. HUIZAR form explained to patient who voiced understanding and signed form. Original form placed in pt?s chart and copy provided to patient. Marina Stallings, Discharge Planning Asst
[2023-10-01 14:41] VITALS: BP 139/80; PULSE 90; RESP 18; TEMP 36.6; O2SAT 98
--- NOTE | 2023-10-01 15:10 | PHA.DC_ITS ---
Pharmacy [facility] has performed discharge medication reconciliation and counseling for this patient. 1. ARTIFICIAL TEARS 1GTT RIGHT EYE Q1H PRN DRY EYES 2. ATORVASTATIN 20MG PO QHS 3. PREDNISONE 60MG PO DAILY X 5 DAYS, THEN 40MG X 3 DAYS, THEN 20MG X 3 DAYS, THEN 10MG X 3 DAYS The patient's discharge medication list was reviewed for discrepancies and discrepancies were resolved. The patient was counseled on the following discharge medications and changes in medications for homegoing were reviewed. The Reason for Use, instructions for use, and potential side effects were reviewed for all new medications. The patient's questions regarding all of their medications were answered. The patient was able to verbally demonstrate an understanding of their discharge medications. Medications at Discharge Home Medications aspirin 81 mg chewable tablet 162 mg PO DAILY@0800 02/23/15 benazepril 20 mg tablet 20 mg PO DAILY 07/08/19 amlodipine 5 mg tablet 5 mg PO QDAY 09/24/23 ascorbic acid (vitamin C) 1,000 mg capsule 1 g PO DAILY 09/24/23 cholecalciferol (vitamin D3) 125 mcg (5,000 unit) capsule 125 mcg PO DAILY 09/24/23 cinnamon bark 500 mg capsule 500 mg PO DAILY 09/24/23 metoprolol tartrate 25 mg tablet 25 mg PO BID 09/24/23 atorvastatin 20 mg tablet 20 mg PO QHS 1 month #30 tabs 10/01/23 peg [id number] 1 %-0.2 %-0.2 % eye drops (Artificial Tears ([id number])) 1 drp RIGHT EYE Q1H PRN Dry Eyes #15 mL 10/01/23 prednisone 20 mg tablet See Taper PO BREAKFAST #26 tabs 10/01/23
--- NOTE | 2023-10-01 15:11 | PN.NEURO_ITS ---
Assessment and Plan: Neuro Assessment/Plan LORIE MERCADO is a 67 M with a history of cardiovascular risk factors including HTN, aortic aneurysm S/P repair who presented to the ED for evaluation of 4 day history of right facial droop with mild numbness of the right face. Examination is notable for upper and lower facial weakness concerning more for a right bells palsy. He did endorse some facial numbness and muffled hearing on occasion on the ipsilateral side which is not typical of [place] but has been reported. Stroke workup including CT head and CTA were negative for acute abnormalities as well as significant stenosis. 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 Since there was atypical feature (i.e., less severe involvement of the upper face) with some subjective numbness, brain MRI resulted as negative for acute ischemic. This further suggests Fan's plays as the etiology given unilateral upper and lower facial involvement. Recommend: Prednisone taper over 2 weeks. Eye drops to protect the right eye. eye patch while sleeping. monitor blood sugar while on prednisone. I discussed that with the patient. Diagnosis: Right [place] Palsy I personally attended this patient and spent a total time of 30 minutes evaluating this patient including clinical assessment, review of chart, medical history imaging, and determining appropriate treatment and workup. Subject: Neurology Subjective Still feeling facial weakness about the same 10 point ROS negative except per above NIHSS NIHSS Nursing Documentation NIHSS Nursing Documentation: NIH Stroke Scale Start: 09/29/23 10:59 Freq: Status: Discharge Protocol: Activity Type Activity Date Activity User E-sign Co-sign Detail Recorded Client Recorded Date Recorded By Document 09/29/23 10:59 [id number] 09/29/23 11:00 09/29/23 10:59 NIH Stroke Scale [NIHSS] A score of 0 is normal or asymptomatic . Total possible score is 42. Inpatient: RN or Physician to activate a stroke alert for onset of new stroke symptoms or with NIHSS increase >/= 3 points. Following change in neurological status, NIHSS will be performed per physician order or more frequently PRN. -1a. Level of Consciousness Alert; keenly responsive -1b. LOC Questions Answers BOTH questions correctly. -1c. LOC Commands Performs both tasks correctly . -2. Best Gaze Normal -3. Visual No visual loss -4. Facial Palsy Minor paralysis (flattened nasolabial fold , asymmetry on smiling) -5a. Left Arm No drift; arm holds 90 (or 45 ) degrees for full 10 seconds -5b. Right Arm No drift; arm holds 90 (or 45 ) degrees for full 10 seconds -6a. Left Leg No drift; leg holds 30-degree position for full 5 seconds -6b. Right Leg No drift; leg holds 30-degree position for full 5 seconds -7. Limb Ataxia Absent -8. Sensory Mild-to- moderate sensory loss; -9. Best Language No aphasia; normal -10. Dysarthria Normal -11. Extinction and Inattention No abnormality -Total 2 Query Text:A score of 0 is normal or asymptomatic. Total possible score is 42 . ED: Notify Physician for NIHSS increase by > / = 3 points. Inpatient: RN or Physician to activate a stroke alert for NIHSS increase of > / = 3 points. NIHSS: Ischemic Stroke/TIA Start: 09/29/23 14:21 Text: For ICU Patients: NIH sroke scale at Status: Complete presentation and every 2 hours or with change in RN caregiver Freq: [id number] Protocol: Activity Type Activity Date Activity User E-sign Co-sign Detail Recorded Client Recorded Date Recorded By Document 09/29/23 14:20 SS desktop 09/29/23 14:37 SS 09/29/23 14:20 -1a. Level of Consciousness Alert; keenly responsive -1b. LOC Questions Answers BOTH questions correctly. -1c. LOC Commands Performs both tasks correctly . -2. Best Gaze Normal -3. Visual No visual loss -4. Facial Palsy Minor paralysis (flattened nasolabial fold , asymmetry on smiling) -5a. Left Arm No drift; arm holds 90 (or 45 ) degrees for full 10 seconds -5b. Right Arm No drift; arm holds 90 (or 45 ) degrees for full 10 seconds -6a. Left Leg No drift; leg holds 30-degree position for full 5 seconds -6b. Right Leg No drift; leg holds 30-degree position for full 5 seconds -7. Limb Ataxia Absent -8. Sensory Mild-to- moderate sensory loss; -9. Best Language No aphasia; normal -10. Dysarthria Normal -11. Extinction and Inattention No abnormality -Total 2 Query Text:A score of 0 is normal or asymptomatic. Total possible score is 42 . ED: Notify Physician for NIHSS increase by > / = 3 points. Inpatient: RN or Physician to activate a stroke alert for NIHSS increase of > / = 3 points. Coma Scale [Assess] -Eye Opening Spontaneous -Motor Obeys Commands -Verbal Oriented [Total] -Coma Scale Total 15 NIHSS: Ischemic Stroke/TIA Start: 09/29/23 14:21 Text: For PCU Patients: NIH and Neuro Check every 4 Status: Complete hours, PRN and with change in RN caregiver. Freq: [id number] Protocol: Activity Type Activity Date Activity User E-sign Co-sign Detail Recorded Client Recorded Date Recorded By Document 09/30/23 13:30 MM desktop 09/30/23 13:32 MM 09/30/23 13:30 NIH Stroke Scale [NIHSS] A score of 0 is normal or asymptomatic . Total possible score is 42. Inpatient: RN or Physician to activate a stroke alert for onset of new stroke symptoms or with NIHSS increase >/= 3 points. Following change in neurological status, NIHSS will be performed per physician order or more frequently PRN. -1a. Level of Consciousness Alert; keenly responsive -1b. LOC Questions Answers BOTH questions correctly. -1c. LOC Commands Performs both tasks correctly . -2. Best Gaze Normal -3. Visual No visual loss -4. Facial Palsy Minor paralysis (flattened nasolabial fold , asymmetry on smiling) -5a. Left Arm No drift; arm holds 90 (or 45 ) degrees for full 10 seconds -5b. Right Arm No drift; arm holds 90 (or 45 ) degrees for full 10 seconds -6a. Left Leg No drift; leg holds 30-degree position for full 5 seconds -6b. Right Leg No drift; leg holds 30-degree position for full 5 seconds -7. Limb Ataxia Absent -8. Sensory Mild-to- moderate sensory loss; -9. Best Language No aphasia; normal -10. Dysarthria Normal -11. Extinction and Inattention No abnormality -Total 2 Query Text:A score of 0 is normal or asymptomatic. Total possible score is 42 . ED: Notify Physician for NIHSS increase by > / = 3 points. Inpatient: RN or Physician to activate a stroke alert for NIHSS increase of > / = 3 points. Coma Scale [Assess] -Eye Opening Spontaneous -Motor Obeys Commands -Verbal Oriented [Total] -Coma Scale Total 15 Objective Data Objective Data Vital Signs: Vital Signs Temp Pulse Resp BP Pulse Ox O2 Del Method 97.9 F 90 18 139/80 H 98 Room Air 10/01/23 14:41 10/01/23 14:41 10/01/23 14:41 10/01/23 14:41 10/01/23 14:41 10/01/23 14:41 Oxygen Delivery Method Room Air Weight: 122.6 kg Body Mass Index (BMI) 38.7 Intake & Output: Intake and Output for Last 24 Hours 09/29/23 09/30/23 10/01/23 23:59 23:59 23:59 Intake Total 1620 / 1620 120 / 120 Balance 1620 / 1620 120 / 120 Lab / Micro Data 09/30/23 04:53 09/30/23 04:53 Labs: Laboratory Results - last 24 hr 09/30/23 04:53: Hemoglobin A1c 6.0 H, TSH 3.09 Radiography Diagnostic Testing: Radiology Impression Echocardiogram 09/29/23 14:21 Interpretation Summary Normal LV size. Mild concentric left ventricular hypertrophy. The left ventricular ejection fraction is 55 %. The left atrium is mildly enlarged. Bubble contrast study negative for right to left interatrial shunt. Ordering Physician: Airam Chavez Referring Physician: Hansa Finney D.O. Performed By: Sana Cuadra RCS Physical Exam Narrative ?General:?NAD, pleasant, cooperative, well nourished, well developed ?Head/Eyes:?Atraumatic, normocephalic, clear cornea, normal sclera/conjunctive ?ENT:?Moist mucous membrane, nose atraumatic/normal. ?Neck:?Full range of motion, supple/no meningismus, no masses or swelling ?Extremities:?Moves all, no edema. ?Skin:?Dry and intact ?Neuro: * Mental Status: AAOX4 & following simple commands. * Speech: Clear and fluent with good repetition, comprehension, & naming. No aphasia or dysarthria * CN II: Visual pride are full to confrontation. PERRL. * CN III, IV, : EOMI, no gaze preference, no nystagmus, no ptosis * CN V: Facial sensation is intact to light touch throughout. * CN VII: Right bells palsy * CN VII: Hearing is grossly normal to conversational speech. * CN IX, X: Palate elevates symmetrically and no uvula deviation * CN XI: Head turning, and shoulder shrug are intact. * CN XII: Tongue is midline with normal movements and no atrophy. * Motor:?Able to sustain all limbs * Sensation: Normal to light touch bilaterally. * Coordination: Normal rapid alternating movements, FTN & HTS. No abn movements seen..
--- NOTE | 2023-10-01 15:58 | CHAPLAIN ---
Type of Pastoral Visit _x__ Initial Visit ___ Follow-up Visit ___ On-call Visit ___ General Patient Visit ___ Spiritual Assessment ___ Family Conference ___ Bereavement ___ Rapid Response ___ Code Blue ___ Other (describe below) Pastoral Care Referral From _x__ Patient ___ Family ___ Nurse ___ Physician ___ Information Technology Technician ___ Senior Shipping Clerk ___ Other (describe below) Sacrament/Intervention _x__ Active listening ___ Anointing ___ Sikhism ___ Bereavement ___ Communion _x__ Mouna exploration ___ ___ Life review _x__ Prayer ___ Reconciliation ___ Sacrament of Sick _x__ Supportive presence ___ Wedding ___ Other (describe below) Pastoral Comments patient and spouse are in the room; pt states that he is getting answers and that it is better than what originally thought so he is relieved; pt and spouse speak of their involvement in a local jehovah's witness and the prayers and support they have for this need; pt speaks about his hopes of going home and getting better soon; prayer welcomed
== END 2023-10-01 11:52 | disposition home or self-care (01) ==
LOC: ED 12:11 → PCU 13:37
PROVIDERS: Admitting Provider Student in an Organized Health Care Education/Training Program; Emergency Provider Emergency Medicine; PCP Internal Medicine; Visit Provider Internal Medicine
DX: G51.0 Bell's palsy (principal); Z79.82 Long term (current) use of aspirin; E78.2 Mixed hyperlipidemia; I10 Essential (primary) hypertension; I45.10 Unspecified right bundle-branch block; I25.10 Atherosclerotic heart disease of native coronary artery without angina pectoris; Z79.899 Other long term (current) drug therapy; N40.0 Benign prostatic hyperplasia without lower urinary tract symptoms; R20.2 Paresthesia of skin
CPT/HCPCS: 36415; 70450; 70496; 70498; 70551; 80048; 80061; 83036; 84443; 85025; 92610; 93005; 93308; 94762; 96360; 96361; 96372; 97161; 97166; 97802; 99221; 99283; J7030; Q9967; G0378

== ENCOUNTER 2023-10-15 08:33 | Outpatient (CLI) | payer MEDICARE, SELFPAY ==
[2023-10-18 00:07] LABS: Lyme IgG P18 Ab Present (.); Lyme IgG P23 Ab Absent (.); Lyme IgG P28 Ab Absent (.); Lyme IgG P30 Ab Absent (.); Lyme IgG P39 Ab Present (.); Lyme IgG P41 Ab Present (.); Lyme IgG P45 Ab Absent (.); Lyme IgG P58 Ab Present (.); Lyme IgG P66 Ab Absent (.); Lyme IgG P93 Ab Absent (.); Lyme IgG WB Interpretation Negative (.); Lyme IgM P23 Ab Absent (.); Lyme IgM P39 Ab Present (.); Lyme IgM P41 Ab Absent (.); Lyme IgM WB Interpretation Negative (.)
== END 2023-10-15 23:59 | disposition home or self-care (01) ==
LOC: LAB 08:35
PROVIDERS: PCP Internal Medicine; Referring Provider Internal Medicine; Visit Provider Internal Medicine
DX: G51.0 Bell's palsy (principal)
CPT/HCPCS: 36415; 86617

== ENCOUNTER → 2023-12-17 | Outpatient (CLI) | payer MEDICARE, SELFPAY ==
--- NOTE | 2023-12-17 13:00 | CT_ITS ---
STUDY: CT CHEST WITH CONTRAST REASON FOR EXAM: Male, 68 years old. Abnormal result of other cardiovascular function study OVERREAD ONLY RADIATION DOSAGE (If Supplied By Facility): CTDIvol = ( 33.05 ) mGy, DLP = ( 1391.34 ) mGycm TECHNIQUE: Transaxial imaging was performed following intravenous administration of [id number]. Individualized dose optimization techniques were used for this CT. COMPARISON: Comparison is made with prior study June 28, 2023. FINDINGS: CHEST The lungs are normal. There is no demonstrated pleural abnormality. There are calcifications of the coronary arteries. Prior CABG. There are small lymph nodes within the mediastinum, which are normal in size and morphology most compatible with reactive lymph hyperplasia. Normal hilar regions. Normal unenhanced pulmonary arteries. There is atherosclerotic calcification of the aortic arch. Normal osseous structures. Fatty infiltration of the liver. CT/Limited Chest CT Cardiac Only IMPRESSION: Coronary calcification. Electronically Signed: Sixto Ward MD at 12:58 EDT ,
[2023-12-17 13:12] VITALS: BP 135/68; PULSE 70; RESP 18; TEMP 36.4; O2SAT 92; BMI 39.4
[2023-12-17] MEDS: 0.9% Saline Lock 10 ML Syringe IV (13:23)
[2023-12-17 13:36] VITALS: BP 123/74; PULSE 71
[2023-12-17] MEDS: Nitroglycerin SL (ED/IMG/CATH) 0.4 MG TABLET SL (13:36)
[2023-12-17 13:43] VITALS: BP 123/74; PULSE 70; RESP 18
[2023-12-17 13:43] LABS: CREATININE FINGERSTICK < 1.0 mg/dL (0.70-1.30); EGFR FINGERSTICK > 60.0000 mL/min (>60)
--- NOTE | 2023-12-18 16:30 | CCTA.WCONT ---
CCTA w/Cont Coronary Arteries Date of Study:: 12/17/23 Coronary artery disease Coronary Calcium Scoring: High-resolution Computed Tomographic imaging of the chest was performed on [12/17/2023], with particular attention paid to the coronary arteries. Intravenous contrast agent was administered per protocol and images reconstructed and displayed. The images were noted to be suboptimal due to the patient's size as well as the density of contrast utilized. LEFT MAIN CORONARY ARTERY: Mild calcification was noted in this vessel with no high-grade obstruction [] LEFT ANTERIOR DESCENDING CORONARY ARTERY: Extensive calcification is noted involving the proximal and mid left anterior descending artery with at least moderate stenosis present with mild to distal calcification present [] LEFT CIRCUMFLEX CORONARY ARTERY: Nondominant vessel with mild to moderate proximal calcification present [] RIGHT CORONARY ARTERY: Dominant right coronary artery with proximal calcification present and mid segment calcification noted with probably moderate stenosis present. [] THORACIC AORTA: Mildly dilated with some calcification present [] PULMONARY ARTERY: [] LEFT ATRIUM/APPENDAGE: [] MITRAL VALVE: [] AORTIC VALVE: [] LEFT VENTRICLE: [] CORONARY CALCIUM SCORE: Not done Suboptimal CT angiogram with moderate to severe calcification noted in the proximal to mid left anterior descending artery and the right coronary artery. []
== END | disposition home or self-care (01) ==
LOC: CT 12:55
PROVIDERS: PCP Internal Medicine; Referring Provider Internal Medicine Cardiovascular Disease; Visit Provider Internal Medicine Cardiovascular Disease
DX: I25.10 Atherosclerotic heart disease of native coronary artery without angina pectoris (principal)
CPT/HCPCS: 75574; 76380; Q9967

== ENCOUNTER → 2024-02-06 | Outpatient (CLI) | payer MEDICARE, SELFPAY | END | disposition home or self-care (01) | PROVIDERS: PCP Internal Medicine; Referring Provider Internal Medicine; Visit Provider Internal Medicine | DX: I48.92 Unspecified atrial flutter (principal) | CPT/HCPCS: 93225; 93226 ==

== ENCOUNTER → 2024-02-08 | Outpatient (CLI) | payer MEDICARE, SELFPAY ==
--- NOTE | 2024-02-08 09:01 | ECHOD_ITS ---
Reason For Study: Ventricular Premature Depolarization Procedure This was a 2D Doppler, Color Flow transthoracic echocardiogram. Exam performed in department. Left Ventricle Normal LV size. The estimated ejection fraction is 60 %. No evidence for diastolic dysfunction. No regional wall motion abnormalities noted. Right Ventricle Normal RV size. Normal systolic function. Atria The left and right atria are normal. No doppler evidence for ASD. Mitral Valve There is mild mitral annular calcification. There is no mitral valve stenosis. No mitral valve insufficiency. Tricuspid Valve There is no tricuspid stenosis. Trivial tricuspid valve insufficiency. Pulmonary artery systolic pressure is 30 mmHg. Aortic Valve Trisinus/trileaflet aortic valve. There is no aortic stenosis. No aortic valve insufficiency. Pulmonic Valve There is no pulmonic valvular stenosis. Trivial pulmonic valve insufficiency. Great Vessels Normal aortic root. Pericardium/Pleural No pericardial effusion. MMode/2D Measurements & Calculations LVIDd: 4.2 cm IVSd: 1.1 cm asc Aorta Diam: 3.0 cm LVIDs: 3.2 cm LVPWd: 1.1 cm RVDd: 4.5 cm FS: 25.0 % LAV(MOD-bp): 48.3 ml LVAd ap4: 29.8 cm2 SV(MOD-sp4): 46.0 ml LAV(MOD-bp) Indexed: 20.3 ml/m2 LVLd ap4: 9.5 cm SI(MOD-sp4): 19.3 ml/m2 LAV(MOD-sp2): 30.8 ml EDV(MOD-sp4): 78.7 ml LAV(MOD-sp4): 68.0 ml EDV(sp4-el): 79.1 ml LVAs ap4: 17.2 cm2 LVLs ap4: 7.8 cm ESV(MOD-sp4): 32.7 ml ESV(sp4-el): 32.2 ml EF(MOD-sp4): 58.4 % EF(sp4-el): 59.2 % SV(sp4-el): 46.8 ml LA A4 area: 21.8 cm2 LA dimension(2D): 4.6 cm RA A4 area: 17.6 cm2 Time Measurements MV dec time: 0.31 sec Doppler Measurements & Calculations MV E max krzysztof: 77.7 cm/sec Lat Peak E' Krzysztof: 5.9 cm/sec Med Peak E' Krzysztof: 5.8 cm/sec MV A max krzyzstof: 115.9 cm/sec E/E' lat: 13.3 E/E' med: 13.4 MV E/A: 0.67 Ao V2 max: 158.9 cm/sec LV V1 max: 112.3 cm/sec MV dec slope: 250.9 cm/sec2 Ao max P.1 mmHg LV V1 max P.1 mmHg Ao V2 mean: 103.1 cm/sec LV V1 mean P.8 mmHg Ao mean P.0 mmHg LV V1 mean: 79.1 cm/sec Ao V2 VTI: 37.7 cm LV V1 VTI: 27.1 cm AV (velocity ratio): 0.72 PA V2 max: 112.0 cm/sec PI end-d krzysztof: 139.7 cm/sec TR max krzysztof: 263.2 cm/sec TR max P.7 mmHg ECHO/Echo Complete Interpretation Summary The estimated ejection fraction is 60 %. No evidence for diastolic dysfunction. Ordering Physician: Hansa Finney Referring Physician: Hansa Finney Performed By: Inessa Vergara, LARY, RVT
== END | disposition home or self-care (01) ==
LOC: CVS 08:59
PROVIDERS: PCP Internal Medicine; Referring Provider Internal Medicine; Visit Provider Internal Medicine
DX: I49.3 Ventricular premature depolarization (principal)
CPT/HCPCS: 93306

== ENCOUNTER → 2024-11-21 | Outpatient (CLI) | payer MEDICARE, SELFPAY ==
--- NOTE | 2024-11-21 07:53 | CDU_ITS ---
Reason For Study Reason For Study: Bilateral Carotid Stenosis Rt. Velocities/BP Lt. Velocities/BP Prox CCA 99.6/20.4 cm/sec. Prox CCA 174.7/18.9 cm/sec. Mid CCA 72.1/14.9 cm/sec. Mid CCA 79.3/24.1 cm/sec. Dist CCA 86.4/22.6 cm/sec. Dist CCA 92.8/24.1 cm/sec. Prox ICA 64.6/14.2 cm/sec. Prox ICA 69.5/16.7 cm/sec. Mid ICA 50.6/22.3 cm/sec. Mid ICA 51.9/12.2 cm/sec. Dist ICA 72.4/27.0 cm/sec. Dist ICA 56.0/25.3 cm/sec. Rt. ICA/CCA = 1.0. Lt. ICA/CCA = 0.9. Prox ECA 93.9/9.6 cm/sec. Prox ECA 76.9/16.7 cm/sec. Rt. Vert. 31.7/7.5 cm/sec. Lt. Vert. 45.9/17.1 cm/sec. Right Extracranial There is intimal thickening but no significant atherosclerotic plaque noted in the right common carotid artery. There is heterogeneous, irregular atherosclerotic plaque noted in the right internal carotid artery. There is intimal thickening but no significant atherosclerotic plaque noted in the right external carotid artery. Antegrade flow is noted in the right vertebral artery. Left Extracranial There is intimal thickening but no significant atherosclerotic plaque noted in the left common carotid artery. There is intimal thickening but no significant atherosclerotic plaque noted in the left internal carotid artery. There is intimal thickening but no significant atherosclerotic plaque noted in the left external carotid artery. Antegrade flow is noted in the left vertebral artery. Procedure Carotid Duplex 39469. This is a Carotid Duplex examination using B-mode, color flow and specral Doppler. The exam was diagnostic. Exam performed in department. VL/Carotid Duplex Ultrasound Interpretation Summary Mild (<50%) stenosis right extracranial internal carotid. No significant athero sclerotic plaque or stenosis noted in the left internal carotid artery. Flow within the vertebral arteries is antegrade b ilaterally. Ordering Physician: Hansa Finney Referring Physician: Hansa Finney Performed By: Kwame Martinez RVT
== END | disposition home or self-care (01) ==
PROVIDERS: PCP Internal Medicine; Referring Provider Internal Medicine; Visit Provider Internal Medicine
DX: I65.23 Occlusion and stenosis of bilateral carotid arteries (principal)
CPT/HCPCS: 93880